=== PATIENT | female | born 1965 | race Caucasian/White ===

== ENCOUNTER 2022-02-07 16:43 | Emergency (ER) | payer OTHER ==
--- NOTE | 2022-02-07 18:07 | RAD REPORT ---
EXAM DESCRIPTION: CT - Head Brain Wo Cont - 02/07/2022 5:50 pm CLINICAL HISTORY: Head injury status post fall COMPARISON: None TECHNIQUE: Computed axial tomography of the head was obtained. IV contrast was not requested. All CT scans are performed using dose optimization technique as appropriate and may include automated exposure control or mA/KV adjustment according to patient size. FINDINGS: An intracranial bleed is not seen . The ventricles are normal in caliber. No extra-axial fluid collection is noted. Mild to moderate cerebral atrophy. Increased density within the right lobe presumably secondary to either calcification or bleed. It pro bably is chronic but should be correlated clinically Fluid within the sinuses/ mastoids is not seen. IMPRESSION: No acute intracranial abnormality is seen. If patient's symptoms persist MRI of the bra in would be recommended.
--- NOTE | 2022-02-07 18:09 | RAD REPORT ---
EXAM DESCRIPTION: RAD - Pelvis - 02/07/2022 5:34 pm CLINICAL HISTORY: Pelvic pain status post injury FINDINGS: No fracture or dislocation is seen. Bones are osteoporotic
--- NOTE | 2022-02-07 18:15 | ER ---
Nurse's Notes [facility] Name: Norma Ruiz Age: 56 yrs Sex: Female : 1965 Arrival Date: 02/07/2022 Time: 16:52 Bed 19 Private MD: Diagnosis: Unspecified injury of head, initial encounter;Contusion of lower back and pelvis Presentation: 02/07 17:17 Chief complaint: EMS states: Report received from EMS, patient received by stretcher ag7 alert and awake, talking. Patient complain that she fell while attempting to sit down and hit the back of her head. Coronavirus screen: Client denies travel out of the [place] in the last 14 days. At this time, the client does not indicate any symptoms associated with coronavirus-19. Ebola Screen: No symptoms or risks identified at this time. Initial Sepsis Screen: Does the patient meet any 2 criteria? No. Patient's initial sepsis screen is negative. Does the patient have a suspected source of infection? No. Patient's initial sepsis screen is negative. Risk Assessment: Do you want to hurt yourself or someone else? Patient reports no desire to harm self or others. Onset of symptoms was February 07, 2022. 17:17 Method Of Arrival: EMS: [facility] 17:17 Acuity: LEWIS 2 ag7 Historical: - Allergies: 17:22 metronizadole; ag7 17:22 Morphine; ag7 17:22 prednisone; ag7 17:22 CEPHALOSPORINS; ag7 17:22 Latex, Natural Rubber; ag7 - Home Meds: 17:23 Melatonin Oral [Active]; duloxetine oral [Active]; pramoxine topical [Active]; Xyzal ag7 oral [Active]; torsemide oral [Active]; Timolol Maleate Opht [Active]; rosuvastatin oral [Active]; Plavix Oral [Active]; Nitroglycerin SL [Active]; insulin lispro subcutaneous [Active]; Metoprolol Tartrate Oral [Active]; Singulair Oral [Active]; Insulin Glargine Sub-Q [Active]; Ibuprofen Oral [Active]; Aspirin Oral [Active]; - PMHx: 17:31 Diabetes mellitus; Major depressive disorder; diabetic retinopathy; macular edema; ag7 vitamin d defiency; hyperlipidemia; acute kidney failure; - Immunization history:: Adult Immunizations up to date, Client reports receiving the 2nd dose of the Covid vaccine, Pneumococcal vaccine is up to date, Flu vaccine is up to date. - Social history:: Smoking status: Patient denies any tobacco usage or history of. - Family history:: not pertinent. - Hospitalizations: : No recent hospitalization is reported. Screenin:43 Abuse screen: Denies threats or abuse. Nutritional screening: No deficits noted. ag7 Tuberculosis screening: No symptoms or risk factors identified. Fall Risk Fall in past 12 months (25 points). Secondary diagnosis (15 points) IV access (20 points). Ambulatory Aid- None/Bed Rest/Nurse Assist (0 pts). Gait- Weak (10 pts.). Mental Status- Oriented to own ability (0 pts). Total Busch Fall Scale indicates High Risk Score (45 or more points). Fall prevention measures have been instituted. Side Rails Up X 2 Placed Close to Nursing Station Frequent Obs/Assessments Occuring Family Present and informed to notify staff if the need to leave the bedside As available patient and family educated on Fall Prevention Program and Strategies. Assessment: 17:34 General: Appears in no apparent distress. well groomed, Behavior is calm, cooperative, ag7 appropriate for age. Pain: Complains of pain in right frontal area Pain does not radiate. Pain currently is 5 out of 10 on a pain scale. Quality of pain is described as aching, Pain began suddenly, Is continuous. 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 Cardiovascular: Heart tones S1 S2 present Capillary refill < 3 seconds Clubbing of nail beds is absent Patient's skin is warm and dry. Respiratory: Airway is patent Trachea midline Respiratory effort is even, unlabored, Respiratory pattern is regular, symmetrical. Injury Description: Head injury sustained to back of head is closed, did not have loss of consciousness. Vital Signs: 17:17 BP 114 / 63 LA Supine (man/reg); Pulse 59 MON; Resp 16 S; Temp 98.6(O); Pulse Ox 100% ag7 on R/A; Weight 105.05 kg (R); Height 65 in. (165.10 cm) (R); Pain 5/10; 17:17 Body Mass Index 38.54 (105.05 kg, 165.10 cm) ag7 [place] Coma Score: 17:24 Eye Response: spontaneous(4). Verbal Response: oriented(5). Motor Response: obeys rn commands(6). Total: 15. 18:13 Eye Response: spontaneous(4). Verbal Response: oriented(5). Motor Response: obeys rn commands(6). Total: 15. ED Course: 16:52 Patient arrived in ED. jd3 16:58 Maame Haji, BRIJESH is Primary Nurse. ag7 17:08 Ivan Alatorre MD is Attending Physician. rn 17:22 Triage completed. ag7 17:34 XRAY Pelvis In Process Unspecified. EDMS 17:34 Arm band placed on. ag7 17:50 CT Head Brain wo Cont In Process Unspecified. EDMS 18:43 No provider procedures requiring assistance completed. ag7 18:45 Patient has correct armband on for positive identification. Bed in low position. Call ag7 light in reach. Side rails up X 1. Adult w/ patient. 18:45 Patient did not have IV access during this emergency room visit. ag7 Administered Medications: No medications were administered Outcome: 18:14 Discharge ordered by . rn 18:44 Discharged to home ambulatory. ag7 18:44 Condition: stable 18:44 Discharge instructions given to patient, family, Instructed on discharge instructions, follow up and referral plans. Demonstrated understanding of instructions, follow-up care. 18:45 Patient left the ED. ag7 Signatures: Dispatcher [employer] EDAZ Ivan Alatorre MD MD rn Davies, Jonathon, RN RN jd3 Maame Haji RN RN ag7
--- NOTE | 2022-02-07 18:15 | EDPHYS ---
Physician Documentation [facility] Name: Norma Ruiz Age: 56 yrs Sex: Female : 1965 Arrival Date: 02/07/2022 Time: 16:52 Bed 19 Private MD: ED Physician Ivan Alatorre HPI: 02/07 17:24 This 56 yrs old Female presents to ER via EMS with complaints of head injury, fall. rn 17:24 The patient or guardian reports injury, pain. The complaints affect the right frontal rn area. Onset: The symptoms/episode began/occurred just prior to arrival. Associated signs and symptoms: Loss of consciousness: This patient did not experience any loss of consciousness. Pertinent positives: headache, Pertinent negatives: neck pain, seizure, shortness of breath, weakness in extremities, generalized weakness. Severity of symptoms: At their worst the symptoms were mild, in the emergency department the symptoms are unchanged. The patient has not experienced similar symptoms in the past. The patient has not recently seen a physician. Pt reports mis-judged her surroundings, was trying to sit on bed, missed, fell onto buttocks/right hip, then rolled and struck right/back of head, states takes aspirin and another anticoagulant. Denies LOC. No vomiting. No focal neuro complaint. Denies neck pain/chest pain/sob/abd pain/leg pain. Reports chronic lumbar back pain and chronic hip pain. . Historical: - Allergies: 17:22 metronizadole; ag7 17:22 Morphine; ag7 17:22 prednisone; ag7 17:22 CEPHALOSPORINS; ag7 17:22 Latex, Natural Rubber; ag7 - Home Meds: 17:23 Melatonin Oral [Active]; duloxetine oral [Active]; pramoxine topical [Active]; Xyzal ag7 oral [Active]; torsemide oral [Active]; Timolol Maleate Opht [Active]; rosuvastatin oral [Active]; Plavix Oral [Active]; Nitroglycerin SL [Active]; insulin lispro subcutaneous [Active]; Metoprolol Tartrate Oral [Active]; Singulair Oral [Active]; Insulin Glargine Sub-Q [Active]; Ibuprofen Oral [Active]; Aspirin Oral [Active]; - PMHx: 17:31 Diabetes mellitus; Major depressive disorder; diabetic retinopathy; macular edema; ag7 vitamin d defiency; hyperlipidemia; acute kidney failure; - Immunization history:: Adult Immunizations up to date, Client reports receiving the 2nd dose of the Covid vaccine, Pneumococcal vaccine is up to date, Flu vaccine is up to date. - Social history:: Smoking status: Patient denies any tobacco usage or history of. - Family history:: not pertinent. - Hospitalizations: : No recent hospitalization is reported. ROS: 17:24 Constitutional: Negative for fever, chills, and weight loss, Eyes: Negative for injury, rn pain, redness, and discharge, Neck: Negative for injury, pain, and swelling, Cardiovascular: Negative for chest pain, palpitations, and edema, Respiratory: Negative for shortness of breath, cough, wheezing, and pleuritic chest pain, Abdomen/GI: Negative for abdominal pain, nausea, vomiting, diarrhea, and constipation, Back: Negative for injury and pain, MS/Extremity: + right hip and lower back pain Skin: Negative for injury, rash, and discoloration, Neuro: Negative for weakness, numbness, tingling, and seizure, + headache Exam: 17:24 Constitutional: This is a well developed, well nourished patient who is awake, alert, rn and in no acute distress. Head/Face: Normocephalic, atraumatic. Eyes: Periorbital areas with no swelling, redness, or edema. Neck: Trachea midline, no masses palpated. Supple, full range of motion without nuchal rigidity, or vertebral point tenderness. No Meningismus. Chest/axilla: Normal chest wall appearance and motion. Nontender with no deformity. No lesions are appreciated. Cardiovascular: Regular rate and rhythm. No pulse deficits. Respiratory: No increased work of breathing, no retractions or nasal flaring. Abdomen/GI: soft, non-tender Back: No spinal tenderness. No costovertebral tenderness. Full range of motion. Skin: Warm, dry with normal turgor. Normal color with no rashes, no lesions, and no evidence of cellulitis. MS/ Extremity: Pulses equal, no cyanosis. Neurovascular intact. Full, normal range of motion. Equal circumference. No focal tenderness at either hip and has full flexion/extension at both hips. Neuro: Awake and alert, GCS 15, oriented to person, place, time. . Motor strength 5/5 in all extremities. Sensory grossly intact. Vital Signs: 17:17 BP 114 / 63 LA Supine (man/reg); Pulse 59 MON; Resp 16 S; Temp 98.6(O); Pulse Ox 100% ag7 on R/A; Weight 105.05 kg (R); Height 65 in. (165.10 cm) (R); Pain 5/10; 17:17 Body Mass Index 38.54 (105.05 kg, 165.10 cm) ag7 [place] Coma Score: 17:24 Eye Response: spontaneous(4). Verbal Response: oriented(5). Motor Response: obeys rn commands(6). Total: 15. 18:13 Eye Response: spontaneous(4). Verbal Response: oriented(5). Motor Response: obeys rn commands(6). Total: 15. MDM: 17:08 Patient medically screened. rn 18:13 Differential diagnosis: Contusion of head, Hematoma on head, Intracranial bleed- rn Concussion cerebral contusion. Data reviewed: vital signs, nurses notes, radiologic studies, CT scan, plain films, and as a result, I will discharge patient. Counseling: I had a detailed discussion with the patient and/or guardian regarding: the historical points, exam findings, and any diagnostic results supporting the discharge/admit diagnosis, lab results, radiology results, the need for outpatient follow up, to return to the emergency department if symptoms worsen or persist or if there are any questions or concerns that arise at home. Special discussion: Based on the patient's history, exam and DX evaluation, there is no indication for emergent intervention or inpatient TX. It is understood by the patient/guardian that if the SXs persist or worsen they need to return immediately for re-evaluation. I discussed with the patient/guardian in detail that at this point there is no indication for admission to the hospital. It is understood, however, that if the symptoms persist or worsen the patient needs to return immediately for re-evaluation. 02/07 17:14 Order name: CT Head Brain wo Cont; Complete Time: 18:12 rn 02/07 17:14 Order name: XRAY Pelvis; Complete Time: 18:12 rn Administered Medications: No medications were administered Disposition Summary: 02/07/22 18:14 Discharge Ordered Location: Home rn Problem: new rn Symptoms: have improved rn Condition: Stable rn Diagnosis - Unspecified injury of head, initial encounter rn - Contusion of lower back and pelvis rn Followup: rn - With: Private Physician - When: As needed - Reason: Recheck today's complaints, Re-evaluation by your physician Discharge Instructions: - Discharge Summary Sheet rn - Contusion rn - Head Injury, Adult rn Forms: - Medication Reconciliation Form rn - Thank You Letter rn - 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
[2022-02-07 21:06] VITALS: BP 114/63; TEMP 98.6; O2SAT 100
== END 2022-02-07 18:45 | disposition home or self-care (01) ==
LOC: ER 16:43
DX: S09.90XA Unspecified injury of head, initial encounter (principal); S30.0XXA Contusion of lower back and pelvis, initial encounter; W06.XXXA Fall from bed, initial encounter; Z88.3 Allergy status to other anti-infective agents; Z88.5 Allergy status to narcotic agent; Z88.8 Allergy status to other drugs, medicaments and biological substances; Z91.040 Latex allergy status; Z91.048 Other nonmedicinal substance allergy status; E11.9 Type 2 diabetes mellitus without complications; Z79.4 Long term (current) use of insulin; N17.9 Acute kidney failure, unspecified; E78.5 Hyperlipidemia, unspecified; Z79.01 Long term (current) use of anticoagulants
CPT/HCPCS: 70450; 72170; 99283

== ENCOUNTER 2022-05-07 14:58 | Emergency (ER) | payer OTHER ==
[2022-05-07] MEDS ORDERED: ACETAMINOPHEN 325 MG TABLET ONE (15:30)
--- NOTE | 2022-05-07 16:06 | RAD REPORT ---
EXAM DESCRIPTION: RAD - Wrist Right 3 View - 05/07/2022 3:52 pm CLINICAL HISTORY: PAIN COMPARISON: No comparisons FINDINGS/IMPRESSION: No acute fracture. No malalignment. Radiocarpal joint space narrowing.
--- NOTE | 2022-05-07 16:06 | RAD REPORT ---
EXAM DESCRIPTION: RAD - Elbow Right 3 View - 05/07/2022 3:52 pm CLINICAL HISTORY: PAIN COMPARISON: No comparisons FINDINGS/IMPRESSION: Mildly distracted fracture of the olecranon. No elbow dislocation. No other fra ctures are identified.
--- NOTE | 2022-05-07 16:27 | ER ---
Nurse's Notes [facility] Name: Norma Ruiz Age: 56 yrs Sex: Female : 1965 Arrival Date: 05/07/2022 Time: 14:59 Bed 19 [facility] MD: Diagnosis: Displaced fracture of olecranon process without intraarticular extension of left ulna Presentation: 05/07 14:59 Chief complaint: EMS states: FALL [facility], PAIN IN R ELBOW AND R bp WRIST. Coronavirus screen: At this time, the client does not indicate any symptoms associated with coronavirus-19. Ebola Screen: No symptoms or risks identified at this time. Initial Sepsis Screen: Does the patient meet any 2 criteria? No. Patient's initial sepsis screen is negative. Does the patient have a suspected source of infection? No. Patient's initial sepsis screen is negative. Risk Assessment: Do you want to hurt yourself or someone else? Patient reports no desire to harm self or others. Onset of symptoms is unknown. 14:59 Method Of Arrival: EMS: [facility] bp 14:59 Acuity: LEWIS 3 bp Triage Assessment: 15:01 General: Appears in no apparent distress. comfortable, obese, Behavior is cooperative, bp appropriate for age, anxious. Pain: Complains of pain in right arm. EENT: No deficits noted. Neuro: No deficits noted. Cardiovascular: No deficits noted. Respiratory: No deficits noted. GI: No deficits noted. : No signs and/or symptoms were reported regarding the genitourinary system. Derm: No deficits noted. Musculoskeletal: No deficits noted. Historical: - Allergies: 15:01 CEPHALOSPORINS; bp 15:01 Latex, Natural Rubber; bp 15:01 metronizadole; bp 15:01 Morphine; bp 15:01 Prednisone; bp - Home Meds: 15:01 Melatonin Oral [Active]; Aspirin Oral [Active]; duloxetine Oral [Active]; Ibuprofen bp Oral [Active]; Insulin Glargine Sub-Q [Active]; insulin lispro subcutaneous [Active]; Metoprolol Tartrate Oral [Active]; Nitroglycerin SL [Active]; Plavix Oral [Active]; pramoxine Topical [Active]; rosuvastatin Oral [Active]; Singulair Oral [Active]; Timolol Maleate Opht [Active]; torsemide Oral [Active]; Xyzal Oral [Active]; - PMHx: 15:01 Acute Kidney Failure; vitamin d defiency; diabetes mellitus; diabetic retinopathy; bp macular edema; Hyperlipidemia; Major Depressive Disorder; - Immunization history:: Adult Immunizations. - Social history:: Smoking status: Patient denies any tobacco usage or history of. Screenin:07 Abuse screen: Denies threats or abuse. Denies injuries from another. Nutritional bp screening: No deficits noted. Tuberculosis screening: No symptoms or risk factors identified. Fall Risk None identified. Assessment: 15:07 General: SEE TRIAGE NOTE. bp 16:05 Reassessment: Patient appears in no apparent distress at this time. Patient and/or jb4 family updated on plan of care and expected duration. Pain level reassessed. Patient is alert, oriented x 3, equal unlabored respirations, skin warm/dry/pink. 17:03 Reassessment: [place] Nurse states that transportation will arrive in about 40 ss minutes. 17:35 Reassessment: Patient appears in no apparent distress at this time. Patient and/or jb4 family updated on plan of care and expected duration. Pain level reassessed. Patient is alert, oriented x 3, equal unlabored respirations, skin warm/dry/pink. Vital Signs: 14:59 BP 116 / 89; Pulse 70; Resp 16; Temp 98; Pulse Ox 100% ; bp 16:05 BP 145 / 81; Pulse 65; Resp 16; Pulse Ox 100% on R/A; jb4 17:35 BP 139 / 71; Pulse 75; Resp 18; Pulse Ox 95% on R/A; jb4 ED Course: 14:59 Patient arrived in ED. bp 15:01 Triage completed. bp 15:01 Arm band placed on. bp 15:03 Brina Freed PA is PHCP. en 15:03 Ines Lujan MD is Attending Physician. en 15:07 Patient has correct armband on for positive identification. Bed in low position. Call bp light in reach. Side rails up X2. 15:09 Ravi Rahman, RN is Primary Nurse. bp 15:54 Wrist Right 3 View XRAY In Process Unspecified. EDMS 15:54 Elbow Right 3 View XRAY In Process Unspecified. EDMS 16:26 Johnny Zhu MD is Referral Physician. en 17:35 No provider procedures requiring assistance completed. Patient did not have IV access jb4 during this emergency room visit. Administered Medications: 15:36 Drug: Tylenol 650 mg Route: PO; jb4 16:49 Follow up: Response: No adverse reaction jb4 16:48 Drug: Ibuprofen 800 mg Route: PO; jb4 17:35 Follow up: Response: No adverse reaction; Marked relief of symptoms jb4 Medication: 15:07 VIS not applicable for this client. bp Outcome: 16:26 Discharge ordered by . en 17:35 Discharged to halfway. jb4 17:35 Condition: stable 17:35 Discharge instructions given to patient, Instructed on discharge instructions, follow up and referral plans. medication usage, Demonstrated understanding of instructions, follow-up care, medications, Prescriptions given X 1. 17:37 Patient left the ED. jb4 Signatures: Dispatcher [employer] EDMS Carlota Zamudio RN RN Andreas Christopher RN RN jb4 Ravi Rahman RN RN bp [place], Elizabeth, PA PA en
--- NOTE | 2022-05-07 16:27 | EDPHYS ---
Physician Documentation [facility] Name: Norma Ruiz Age: 56 yrs Sex: Female : 1965 Arrival Date: 05/07/2022 Time: 14:59 Bed 19 Private MD: ED Physician Ines Lujan HPI: 05/07 15:42 This 56 yrs old Female presents to ER via EMS with complaints of Fall Injury. en 15:42 56 yo F, legally blind, presents to ED with right elbow and wrist pain s/p slip off end en of bed [employer]SEM[employer]. Pt is visually impaired and slid off end of bed hitting elbow directly on floor. No LOC. Arrived via EMS with c/o DROM right elbow with pain. . Historical: - Allergies: 15:01 CEPHALOSPORINS; bp 15:01 Latex, Natural Rubber; bp 15:01 metronizadole; bp 15:01 Morphine; bp 15:01 Prednisone; bp - Home Meds: 15:01 Melatonin Oral [Active]; Aspirin Oral [Active]; duloxetine Oral [Active]; Ibuprofen bp Oral [Active]; Insulin Glargine Sub-Q [Active]; insulin lispro subcutaneous [Active]; Metoprolol Tartrate Oral [Active]; Nitroglycerin SL [Active]; Plavix Oral [Active]; pramoxine Topical [Active]; rosuvastatin Oral [Active]; Singulair Oral [Active]; Timolol Maleate Opht [Active]; torsemide Oral [Active]; Xyzal Oral [Active]; - PMHx: 15:01 Acute Kidney Failure; vitamin d defiency; diabetes mellitus; diabetic retinopathy; bp macular edema; Hyperlipidemia; Major Depressive Disorder; - Immunization history:: Adult Immunizations. - Social history:: Smoking status: Patient denies any tobacco usage or history of. ROS: 15:42 Constitutional: Negative for fever, chills, and weight loss. en 15:42 MS/extremity: Positive for right elbow and wrist pain with DROM right elbow. 15:42 All other systems are negative. Exam: 15:42 Constitutional: This is a well developed, well nourished patient who is awake, alert, en and in no acute distress. 15:42 Constitutional: The patient appears in no acute distress, alert, awake. 15:42 Eyes: visually impaired. 15:42 Back: pain, is absent, ROM is normal, normal spinal alignment noted. 15:42 Musculoskeletal/extremity: DROM right elbow 2/2 pain. No swelling or deformity. No TTP to wrist, but pain with ROM. 2+ radial pulse, normal sensation. 15:42 Neuro: Orientation: appropriate for stated age, to person, place \T\ time. Mentation: appropriate for stated age. 15:42 Psych: Behavior/mood is pleasant, cooperative, Affect is calm. Vital Signs: 14:59 BP 116 / 89; Pulse 70; Resp 16; Temp 98; Pulse Ox 100% ; bp 16:05 BP 145 / 81; Pulse 65; Resp 16; Pulse Ox 100% on R/A; jb4 17:35 BP 139 / 71; Pulse 75; Resp 18; Pulse Ox 95% on R/A; jb4 Procedures: 16:24 Splinting: Splint applied to right antecubital area using Orthoglass splint, Long arm en splint. applied by myself. Examined by me, post splint application: neurovascular intact, brisk capillary refill noted, Patient tolerated well. MDM: 15:04 Patient medically screened. en 15:42 Differential diagnosis: fracture, sprain, strain. Data reviewed: vital signs, nurses en notes, radiologic studies, and as a result, I will will give tylenol for pain and XR elbow and wrist. 16:24 ED course: Pt with minimally displace olecranon fx, placed in long arm splint. Will d/c en home with ortho f/u. 05/07 15:03 Order name: Wrist Right 3 View XRAY; Complete Time: 16:23 en 05/07 15:03 Order name: Elbow Right 3 View XRAY; Complete Time: 16:23 en Administered Medications: 15:36 Drug: Tylenol 650 mg Route: PO; jb4 16:49 Follow up: Response: No adverse reaction jb4 16:48 Drug: Ibuprofen 800 mg Route: PO; jb4 17:35 Follow up: Response: No adverse reaction; Marked relief of symptoms jb4 Disposition Summary: 05/07/22 16:26 Discharge Ordered Location: Home en Problem: new en Symptoms: are unchanged en Condition: Stable en Diagnosis - Displaced fracture of olecranon process without intraarticular extension of left en ulna Followup: en - With: Johnny Zhu MD - When: 2 - 3 days - Reason: Discharge Instructions: - Discharge Summary Sheet en - Elbow Fracture, Pediatric en Forms: - Medication Reconciliation Form en - Thank You Letter en - Antibiotic Education en - Prescription Opioid Use en Prescriptions: - Ibuprofen 800 mg Oral Tablet - take 1 tablet by ORAL route every 12 hours As needed take with food; 20 tablet; en Refills: 0, Product Selection Permitted Signatures: Dispatcher [employer] EDAndreas Mendes RN RN jb4 Ravi Rahman RN RN bp Brina Freed PA PA en
[2022-05-07] MEDS ORDERED: IBUPROFEN 400 MG TAB ONE (16:53)
[2022-05-07 17:43] VITALS: TEMP 98
[2022-05-07 17:47] VITALS: BP 139/71; O2SAT 95
== END 2022-05-07 17:37 | disposition home or self-care (01) ==
LOC: ER 14:58
PROC: 2W38X1Z Immobilization of Right Upper Extremity using Splint (ICD-10-PCS; principal; 2022-05-07)
DX: S52.021A Displaced fracture of olecranon process without intraarticular extension of right ulna, initial encounter for closed fracture (principal); E11.9 Type 2 diabetes mellitus without complications; N17.9 Acute kidney failure, unspecified

== ENCOUNTER 2022-07-26 09:40 | Emergency (ER) | payer OTHER ==
--- OUTSIDE RECORDS SUMMARY | 2022-07-26 09:43 | XMS REPORT | Continuity of Care Document ---
:1965 Author Organization [facility] t Address [address] [place] [address] Care Team Providers Name Role Phone PCP, PATIENT DOES NOT HAVE A Primary Care Physician Unavaila AYSHA Shay Attending Clinician Unavailable Aysha Kramer Attending Clinician Payers Payer Name Policy Type Policy Number Effective Date Expiration Date Snow murcia MEDICARE PART A [id number] 2001 \T\ B 00:00:00 MEDICAID [facility] [id number] 2022 00:00:00 Problems Condition Condition Condition Status Onset Resolution Last Treating Co mments Source Name Details Category Date Date Treatment Clinician Date No known No known Disease Unive rs active active ity of problems problems [facility] Allergies, Adverse Reactions, Alerts Allergy Allergy Status Severity Reaction(s) Onset Inactive Treating Comm ents Source Name Type Date Date Clinician LATEX DRUG Active Rash Univers INGREDI 7-28 ity of 00:00: [place] 00 Medical Branch METRONID DRUG Active Hives Univers AZOLE INGREDI 7-28 ity of 00:00: [place] 00 Medical Branch MORPHINE DRUG Active Anxiety 2021-0 Univers INGREDI 7-28 ity of 00:00: [place] 00 Medical Branch PREDNISO DRUG Active Palpitations 2021-0 Un helen NE INGREDI 7-28 ity of 00:00: [place] 00 Medical Branch Cephalos Propensi Active Anxiety 2021-0 Unive rs porins ty to 7-28 ity of adverse 00:00: [place] reaction 00 Medical s Branch Latex Propensi Active Rash 2021-0 Univers ty to 7-28 ity of adverse 00:00: [place] reaction 00 Medical s Branch Metronid Propensi Active Hives 2021-0 Univer s azole ty to 728 ity of adverse 00:00: [place] reaction Medical s Branch Morphine Propensi Active Anxiety Unive rs ty to 7-28 ity of adverse 00:00: [place] reaction Medical s Branch Predniso Propensi Active Palpitations Univers ne ty to 7-28 ity of adverse 00:00: [place] reaction Medical s Branch CEPHALOS Drug Active Anxiety Univers PORINS Class 7-28 ity of 00:00: Medical Branch Social History Social Habit Start Date Stop Date Quantity Comments Source Exposure to 2022-06-05 2022-06-15 Not sure [facility] SARS-CoV-2 (event) 00:00:00 08:13:00 Medica l Branch Sex [facility] [birth year] [facility] [place] 00:00:00 00:00:00 Medical Branch Smoking Status Start Date Stop Date Source Tobacco smoking consumption [facility] Medical unknown Branch Medications Ordered Filled Start Stop Current Ordering Indication Dosage Frequency Signature Comments Components Source Medication Medication Date Date Medication? Clinician (SIG) Name Name HALEY Yes Univers KWIKPEN 6-13 ity of U-100 00:00: [place] INSULIN 100 00 Medical unit/mL (3 Branch mL) injection BASAGLAR Yes Univers KWIKPEN 6-13 ity of U-100 00:00: [place] INSULIN 100 00 Medical unit/mL (3 Branch mL) injection clopidogreL Yes Univer s 75 mg 6-09 ity of tablet 00:00: [place] Medical Branch levocetiriz Yes Univer s ine 5 mg 6-09 ity of tablet 00:00: [place] Medical [facility] clopidogreL 0 Yes Univer s 75 mg 6-09 ity of tablet 00:00: [place] Medical Branch levocetiriz 0 Yes Univer s ine 5 mg 6-09 ity of tablet 00:00: Medical Branch SIMBRINZA Yes Univers 1-0.2 % 5-27 ity of ophthalmic 00:00: [place] drops Medical Branch SIMBRINZA 0 Yes Univers 1-0.2 % 5-27 ity of ophthalmic 00:00: [place] drops Medical Branch NOVOLOG 0 Yes Univers U-100 5-26 ity of INSULIN 00:00: [place] ASPART 100 00 Medical unit/mL Branch solution NOVOLOG Yes Univers U-100 5-26 ity of INSULIN 00:00: [place] ASPART 100 00 Medical unit/mL Branch solution rosuvastati Yes Univer s n 20 mg 5-21 ity of tablet 00:00: [place] [facility] rosuvastati Yes Univer s n 20 mg 5-21 ity of tablet 00:00: [address] Vital Signs Vital Name Observation Time Observation Value Comments Source Systolic blood 2022-06-15 13:23:00 110 mm[Hg] Justaer sity [facility] Diastolic blood 2022-06-15 13:23:00 70 mm[Hg] [facility] Districte rsaudie [facility] Body height 2022-06-15 13:23:00 162.6 cm [facility] Body weight 2022-06-15 13:23:00 108.863 kg [facility] BMI 2022-06-15 13:23:00 41.20 kg/m2 [facility] Procedures This patient has no known procedures. Encounters Start End Encounter Admission Attending Care Care Encounter Source Date/Time Date/Time Type Type Clinicians Facility Department ID 2022-06-15 2022-06-15 Outpatient R ASHLEY [facility] [id number] Univers 08:00:00 08:52:00 AYSHA [facility] 2022-06-15 2022-06-15 Office Ashley [facility] [id number] Univers 08:00:00 08:30:00 Visit [facility] [id number] it y of ACE [id number] Zi as MING?BLEA [id number] [place] [address] MEDICAL OFFICE BUILDING Results This patient has no known results.
[2022-07-26 10:35] LABS: Absolute Lymphocytes (CBC) 0.8 K/uL (0.7-4.9); Lymphocytes % 9.7 % (15.3-44.8); MCV 85.1 fL (80-100); MPV 8.5 fL (7.6-11.3); RBC Red Blood Cell Count 4.58 M/uL (3.86-4.86)
--- NOTE | 2022-07-26 10:47 | RAD REPORT ---
EXAM DESCRIPTION: RAD - Hip Left 2 View - 07/26/2022 10:09 am CLINICAL HISTORY: PAIN COMPARISON: No comparisons FINDINGS/IMPRESSION: Comminuted left intertrochanteric hip fracture. No dislocation. Partially image d intramedullary devin in the mid femoral diaphysis.
[2022-07-26 10:49] LABS: Potassium 4.8 mmol/L (3.5-5.1)
[2022-07-26] MEDS ORDERED: KETAMINE HCL 500 MG/5 ML VIAL ONE (11:03)
--- NOTE | 2022-07-26 12:09 | ER ---
Nurse's Notes [facility] Name: Norma Ruiz Age: 56 yrs Sex: Female : 1965 Arrival Date: 07/26/2022 Time: 09:45 Bed 19 Private MD: Diagnosis: Intertrochanteric fracture of femur;Fall on same level, unspecified Presentation: 07/26 09:47 Chief complaint: EMS states: EMS called to [facility] for a fall from standing. Pt reporting jh6 pain to l hip and femur that is worse with movement. Coronavirus screen: Vaccine status: Patient reports receiving the 2nd dose of the covid vaccine. Ebola Screen: Patient negative for fever greater than or equal to 101.5 degrees Fahrenheit, and additional compatible Ebola Virus Disease symptoms Patient denies exposure to infectious person. Patient denies travel to an Ebola-affected area in the 21 days before illness onset. Initial Sepsis Screen: Does the patient meet any 2 criteria? No. Patient's initial sepsis screen is negative. Does the patient have a suspected source of infection? No. Patient's initial sepsis screen is negative. Risk Assessment: Do you want to hurt yourself or someone else? Patient reports no desire to harm self or others. Onset of symptoms was July 26, 2022. 09:47 Method Of Arrival: EMS: [facility] 09:47 Acuity: LEWIS 3 jh6 Triage Assessment: 09:51 General: Appears in no apparent distress. uncomfortable, Behavior is calm, cooperative. jh6 Pain: Complains of pain in left femoral area, left inguinal area and left hip Pain radiates to left upper thigh and left quadriceps Pain currently is 6 out of 10 on a pain scale. Quality of pain is described as aching, Pain began suddenly, Is continuous, Aggravated by exercise, increased activity, repositioning. Historical: - Allergies: 09:49 CEPHALOSPORINS; jh6 09:49 Latex, Natural Rubber; jh6 09:49 metronizadole; jh6 09:49 Morphine; jh6 09:49 Prednisone; jh6 - PMHx: 09:49 Acute Kidney Failure; vitamin d defiency; Major Depressive Disorder; Hyperlipidemia; jh6 diabetic retinopathy; macular edema; diabetes mellitus; - Immunization history:: Adult Immunizations up to date. - Social history:: Smoking status: Patient denies any tobacco usage or history of. Screenin:52 Abuse screen: Denies threats or abuse. Denies injuries from another. Nutritional jh6 screening: No deficits noted. Tuberculosis screening: No symptoms or risk factors identified. Fall Risk Fall in past 12 months (25 points). Secondary diagnosis (15 points) impaired mobility. Assessment: 09:49 General: Appears uncomfortable, Behavior is cooperative. jh6 09:49 Pain: Complains of pain in left femoral area, left inguinal area, left iliac crest and jh6 left hip. 11:00 Reassessment: Patient and/or family updated on plan of care and expected duration. Pain jh6 level reassessed. Patient is alert, oriented x 3, equal unlabored respirations, skin warm/dry/pink. pt having pain to l hip and upper femur area that is worse with manipulation. MD made aware and meds ordered. 12:00 Reassessment: Patient and/or family updated on plan of care and expected duration. Pain jh6 level reassessed. pts clothing removed and placed in gown pur-wick used for voiding. pt does report that pain is decreased after meds. 14:00 Reassessment: Patient and/or family updated on plan of care and expected duration. Pain jh6 level reassessed. Patient is alert, oriented x 3, equal unlabored respirations, skin warm/dry/pink. 16:29 Reassessment: Patient and/or family updated on plan of care and expected duration. Pain jh6 level reassessed. Patient is alert, oriented x 3, equal unlabored respirations, skin warm/dry/pink. waiting for ems to transfer to [facility]. Vital Signs: 09:47 BP 120 / 82; Pulse 59; Resp 17; Temp 98.2; Pulse Ox 98% ; Weight 105.23 kg; Height 5 6 ft. 4 in. (162.56 cm); Pain 6/10; 11:00 BP 142 / 71; Pulse 62; Resp 18; Pulse Ox 98% ; Pain 6/10; jh6 11:00 BP 129 / 58; Pulse 68; Resp 17; Pulse Ox 98% ; Pain 4/10; jh6 09:47 Body Mass Index 39.82 (105.23 kg, 162.56 cm) 6 ED Course: 09:45 Patient arrived in ED. em1 09:46 Laurent Hubbard DO is Attending Physician. ms3 09:47 Yue Lopez, RN is Primary Nurse. 6 09:49 Triage completed. jh6 09:51 Arm band placed on left wrist. jh6 10:11 Hip Left 2 View XRAY In Process Unspecified. EDMS 10:25 Inserted saline lock: 24 gauge in left wrist, using aseptic technique. Blood collected. 6 10:26 Call light in reach. Side rails up X2. jh6 14:13 Head C Spine Mpr Wo Con In Process Unspecified. EDMS 16:28 No provider procedures requiring assistance completed. jh6 Administered Medications: 11:01 Drug: Ketamine 10 mg Route: IVP; Site: left wrist; jh6 11:46 Follow up: Response: Pain is decreased jh6 12:58 Drug: Ketamine 10 mg Route: IVP; Site: right wrist; jh6 16:29 Follow up: Response: Pain is decreased jh6 17:19 Drug: Midazolam 1 mg Route: IVP; Site: left wrist; 6 Medication: 10:26 VIS not applicable for this client. 6 Outcome: 12:08 ER care complete, transfer ordered by . ms3 16:27 Transferred by ground EMS to [facility]. jh6 16:27 Condition: stable 16:27 Discharge instructions given to Instructed on the need for transfer. 17:19 Patient left the ED. 6 Signatures: Dispatcher [employer] Christiano Alicia em1 Laurent Hubbard DO DO ms3 Yue Lopez, RN RN 6
--- NOTE | 2022-07-26 12:09 | EDPHYS ---
Physician Documentation [facility] Name: Norma Ruiz Age: 56 yrs Sex: Female : 1965 Arrival Date: 07/26/2022 Time: 09:45 Bed 19 Private MD: ED Physician Laurent Hubbard HPI: 07/26 09:49 This 56 yrs old Female presents to ER via EMS with complaints of fall with Left hip ms3 pain. 09:49 56-year-old female presents from [facility] via [facility] after tripping ms3 and falling while walking. Patient states she is having left hip pain that she rates an 8/10. Per EMS nursing facility states patient is not on blood thinners, but per patient she is on blood thinners. The patient's medication list shows she is on aspirin daily. Patient states she is having left hip pain she rates a 7/10 described as throbbing. Patient denies nausea, vomiting. Patient denies alleviating factors. Patient states pain is worse with movement.. Historical: - Allergies: 09:49 CEPHALOSPORINS; 6 09:49 Latex, Natural Rubber; jh6 09:49 metronizadole; jh6 09:49 Morphine; jh6 09:49 Prednisone; 6 - PMHx: 09:49 Acute Kidney Failure; vitamin d defiency; Major Depressive Disorder; Hyperlipidemia; 6 diabetic retinopathy; macular edema; diabetes mellitus; - Immunization history:: Adult Immunizations up to date. - Social history:: Smoking status: Patient denies any tobacco usage or history of. ROS: 09:49 Constitutional: Negative for fever, and chills. Neck: Negative for injury, pain, and ms3 swelling, Cardiovascular: Negative for chest pain, and palpitations. Respiratory: Negative for shortness of breath, cough, wheezing, and pleuritic chest pain, Abdomen/GI: Negative for abdominal pain, nausea, vomiting, diarrhea, and constipation, MS/Extremity: Negative for injury and deformity, Skin: Negative for injury, rash, and discoloration. 09:49 MS/extremity: Positive for pain, of the left hip. 09:49 All other systems are negative. ms3 Exam: 09:49 Constitutional: This is a well developed, well nourished patient who is awake, alert, ms3 and in no acute distress. Head/Face: Normocephalic, atraumatic. Neck: Trachea midline, no cervical lymphadenopathy. Supple, full range of motion without nuchal rigidity, or vertebral point tenderness. No Meningismus. Chest/axilla: Normal chest wall appearance and motion. Nontender with no deformity. Cardiovascular: Regular rate and rhythm with a normal S1 and S2. No gallops, murmurs, or rubs. Normal PMI, no JVD. No pulse deficits. Respiratory: Lungs have equal breath sounds bilaterally, clear to auscultation and percussion. No rales, rhonchi or wheezes noted. No increased work of breathing, no retractions or nasal flaring. Abdomen/GI: Soft, non-tender, with normal bowel sounds. No distension or tympany. No guarding or rebound. No evidence of tenderness throughout. Skin: Warm, dry with normal turgor. Normal color with no rashes, no lesions, and no evidence of cellulitis. Psych: Awake, alert, with orientation to person, place and time. Behavior, mood, and affect are within normal limits. 09:49 Musculoskeletal/extremity: ROM: limited passive range of motion due to pain, in the Left hip, Sensation intact. Compartment Syndrome exam of affected extremity: is normal. Vital Signs: 09:47 BP 120 / 82; Pulse 59; Resp 17; Temp 98.2; Pulse Ox 98% ; Weight 105.23 kg; Height 5 jh6 ft. 4 in. (162.56 cm); Pain 6/10; 11:00 BP 142 / 71; Pulse 62; Resp 18; Pulse Ox 98% ; Pain 6/10; jh6 11:00 BP 129 / 58; Pulse 68; Resp 17; Pulse Ox 98% ; Pain 4/10; jh6 09:47 Body Mass Index 39.82 (105.23 kg, 162.56 cm) 6 MDM: 09:46 Patient medically screened. ms3 09:49 Differential diagnosis: contusion, fracture, sprain, strain. ms3 12:07 Counseling: I had a detailed discussion with the patient and/or guardian regarding: the ms3 historical points, exam findings, and any diagnostic results supporting the discharge/admit diagnosis, lab results, radiology results, the need to transfer to another facility. ED course: Discussed case with Dr Mccann. Patient will require IMN nail removal and equipment is not available at [facility] for procedure. Patient will need to be transferred.. 12:08 Data reviewed: vital signs, nurses notes, lab test result(s), radiologic studies, and ms3 as a result, I will Transfer. 13:33 ED course: Discussed case with Dr Lane at [facility] and he will consult on patient.. ms3 07/26 09:47 Order name: Basic Metabolic Panel; Complete Time: 11:26 ms3 07/26 09:47 Order name: CBC with Diff; Complete Time: 11:26 ms3 07/26 09:47 Order name: Type And Screen; Complete Time: 11:26 ms3 07/26 09:47 Order name: CT Head C Spine ms3 07/26 09:47 Order name: Hip Left 2 View XRAY; Complete Time: 11:26 ms3 07/26 13:21 Order name: SARS RAPID; Complete Time: 14:36 bd 07/26 09:47 Order name: Labs collected and sent; Complete Time: 10:25 ms3 07/26 14:09 Order name: Head C Spine Mpr Wo Con; Complete Time: 14:36 EDMS Administered Medications: 11:01 Drug: Ketamine 10 mg Route: IVP; Site: left wrist; 6 11:46 Follow up: Response: Pain is decreased 6 12:58 Drug: Ketamine 10 mg Route: IVP; Site: right wrist; 6 16:29 Follow up: Response: Pain is decreased 6 17:19 Drug: Midazolam 1 mg Route: IVP; Site: left wrist; 6 Disposition Summary: 07/26/22 12:08 Transfer Ordered Reason: Higher level of care ms3 Condition: Stable ms3 Problem: new ms3 Symptoms: are unchanged ms3 Transfer Location: [facility](07/26/22 14:37) ms3 Accepting Physician: Dr Edwards(07/26/22 17:19) 6 Diagnosis - Intertrochanteric fracture of femur ms3 - Fall on same level, unspecified ms3 Forms: - Medication Reconciliation Form ms3 - SBAR form ms3 Signatures: Dispatcher [employer] EDMS Laurent Hubbard DO DO ms3 Yue Lopez RN RN jh6 Corrections: (The following items were deleted from the chart) 14:37 12:08 Dr ms3 ms3 14:37 12:08 [facility] ms3 ms3 17:19 14:37 Dr Edwards ms3 jh6
[2022-07-26 14:05] LABS: SARS-CoV-2 Antigen Rapid Res Negative (Negative)
--- NOTE | 2022-07-26 14:29 | RAD REPORT ---
EXAM DESCRIPTION: CT - CTHCSPWOC - 07/26/2022 2:12 pm CLINICAL HISTORY: Trauma, head and neck injury. fall COMPARISON: Head Brain Wo Cont dated 02/07/2022 TECHNIQUE: Axial 5 mm thick images of the head were obtained. Axial 2 mm thick images of the cervical spine were obtained with sagittal and coronal reconstruction images generated and reviewed. All CT scans are performed using dose optimization technique as appropriate and may include automated exposure control or mA/KV adjustment according to patient size. FINDINGS: CT HEAD WITHOUT CONTRAST: No acute hemorrhage, hydrocephalus or extra-axial collection is identified.Moderate generalized brain atrophy is present with moderate periventricular and deep white matter chronic microvascular ischemi c changes.No areas of brain edema or midline shift. Left vertebral atherosclerosis. Chronic hyperdens ity right globe. The paranasal sinuses and mastoids are clear.The calvarium is intact. CT CERVICAL SPINE WITHOUT CONTRAST: No fracture or subluxation.No prevertebral soft tissues swelling is identified. IMPRESSION: No acute intracranial or cervical spine findings.
[2022-07-26] MEDS ORDERED: MIDAZOLAM HCL 2 MG/2 ML INJ ONE (17:22)
[2022-07-26 17:51] VITALS: TEMP 98.2; O2SAT 98
[2022-07-26 17:54] VITALS: BP 129/58
== END 2022-07-26 17:19 | disposition short-term general hospital (02) ==
LOC: ER 09:40
DX: S72.142A Displaced intertrochanteric fracture of left femur, initial encounter for closed fracture (principal); W18.30XA Fall on same level, unspecified, initial encounter; Z20.822 Contact with and (suspected) exposure to COVID-19; N17.9 Acute kidney failure, unspecified; Z88.3 Allergy status to other anti-infective agents; Z88.5 Allergy status to narcotic agent; Z88.8 Allergy status to other drugs, medicaments and biological substances; Z91.040 Latex allergy status; Z91.048 Other nonmedicinal substance allergy status
CPT/HCPCS: 85025; 80048; 36415; 86900; 86850; 86901; 70450; 72125; 73502; 99285; 87811; J2250

== ENCOUNTER → 2023-11-09 | Emergency (ER) | payer OTHER ==
--- NOTE | 2023-11-09 22:18 | RAD REPORT ---
EXAM DESCRIPTION: Shoulder Right 2 View - 11/09/2023 9:56 pm CLINICAL HISTORY: fall COMPARISON: No comparisons TECHNIQUE: Internal and external rotation views of the right shoulder were obtained. FINDINGS: There is no fracture or dislocation. AC joint mild degenerative changes. Glenohumeral join t appears well aligned. No acute or suspicious findings. IMPRESSION: No acute osseus abnormality. Mild AC joint degenerative changes.
--- NOTE | 2023-11-09 22:22 | RAD REPORT ---
EXAM DESCRIPTION: RAD - Elbow Right 2 View - 11/09/2023 9:56 pm CLINICAL HISTORY: fall COMPARISON: Elbow Right 3 View dated 05/07/2022 TECHNIQUE: Right elbow, 3 views. FINDINGS: No acute fracture is identified. Corticated chronic fracture at the base of the olecranon in unchanged alignment. No elevated posterior fat pad to suggest an effusion. There is no dislocation or periosteal reaction noted. No foreign body or other soft tissue abnormalit y. IMPRESSION: No acute osseous abnormality. 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
--- NOTE | 2023-11-09 22:23 | RAD REPORT ---
EXAM DESCRIPTION: RAD - Hip Right 2 View - 11/09/2023 9:56 pm CLINICAL HISTORY: fall COMPARISON: No comparisons TECHNIQUE: Right hip, AP and frog-leg views. FINDINGS: There is no fracture or dislocation. Moderate femoroacetabular joint degenerative changes. No acute or destructive bony process seen. IMPRESSION: No acute findings of the right hip. Moderate degenerative changes.
--- NOTE | 2023-11-09 22:40 | RAD REPORT ---
EXAM DESCRIPTION: CT - Head Brain Wo Cont - 11/09/2023 10:12 pm CLINICAL HISTORY: TRAUMA COMPARISON: Head Brain Wo Cont dated 02/07/2022 TECHNIQUE: Noncontrast head CT images were obtained without IV contrast. Multiplanar reformats were generated and reviewed. All CT scans are performed using dose optimization technique as appropriate and may include automated exposure control or mA/KV adjustment according to patient size. FINDINGS: No intracranial hemorrhage, mass, or edema. Midline structures are unremarkable. Stable ventricular caliber with moderate prominence of the ventricles. Relative effacement of the sul ci near the vertex compared to other sulci including the sylvian fissures. This is also stable. Chew-white matter differentiation is preserved, without evidence of acute infarct. No abnormal extra- axial fluid collections. Mastoid air cells and visualized portions of the paranasal sinuses are clear. Right globe prosthesis in place. No acute bony findings. IMPRESSION: No evidence of an acute intracranial process. Stable ventricular prominence, with crowding of the sulci near the vertex. This may relate to central ly predominant volume loss versus normal pressure hydrocephalus. Please correlate clinically.
--- NOTE | 2023-11-09 22:53 | EDPHYS ---
Physician Documentation [facility] Name: Norma Ruiz Age: 58 yrs Sex: Female : 1965 Arrival Date: 11/09/2023 Time: 20:57 Bed 19 Private MD: ED Physician Darron Claros HPI: 11/09 21:43 This 58 yrs old Female presents to ER via EMS with complaints of Right elbow, shoulder, sp3 hip pain from fall. 21:43 58-year-old female with history of diabetes, renal disease from skilled nursing presents sp3 via EMS for mechanical ground-level fall while ambulating to the toilet. Patient landed on her right side and complains of right elbow pain, right shoulder pain and mild pain to the right hip and patient did hit her head but denies loss of consciousness, headache or any significant injury to the head. She denies neck pain. Patient is on Plavix but no anticoagulants. She denies chest pain, shortness of breath, abdominal pain, bleeding, syncope, near syncope, prodromal event prior to fall, or any other signs or symptoms on ROS at this time.. Historical: - Allergies: 21:45 CEPHALOSPORINS; pf1 21:45 Latex; pf1 21:45 metronizadole; pf1 21:45 Morphine; pf1 21:45 Prednisone; pf1 21:45 Novocain; pf1 21:45 Aleve; pf1 - PMHx: 21:45 Acute Kidney Failure; diabetes mellitus; diabetic retinopathy; macular edema; pf1 Hyperlipidemia; Major Depressive Disorder; vitamin d defiency; - Immunization history:: Adult Immunizations up to date, 3 doses of Moderna Last tetanus immunization: > 10 years ago Flu vaccine is up to date. - Social history:: Smoking status: Patient denies any tobacco usage or history of. Patient/guardian denies using alcohol, street drugs. ROS: 21:49 Constitutional: Negative for fever, chills, and weight loss, Eyes: Negative for injury, sp3 pain, redness, and discharge, ENT: Negative for injury, pain, and discharge, Neck: Negative for injury, pain, and swelling, Cardiovascular: Negative for chest pain, palpitations, and edema, Respiratory: Negative for shortness of breath, cough, wheezing, and pleuritic chest pain, Abdomen/GI: Negative for abdominal pain, nausea, vomiting, diarrhea, and constipation, Back: Negative for injury and pain, Skin: Negative for injury, rash, and discoloration, Neuro: Negative for headache, weakness, numbness, tingling, and seizure, Psych: Negative for depression, anxiety, suicide ideation, homicidal ideation, and hallucinations, Allergy/Immunology: Negative for hives, rash, and allergies, Endocrine: Negative for neck swelling, polydipsia, polyuria, polyphagia, and marked weight changes, Hematologic/Lymphatic: Negative for swollen nodes, abnormal bleeding, and unusual bruising, Exam: 21:49 Constitutional: This is a well developed, well nourished patient who is awake, alert, sp3 and in no acute distress. Head/Face: Normocephalic, atraumatic. Eyes: Pupils equal round and reactive to light, extra-ocular motions intact. Lids and lashes normal. Conjunctiva and sclera are non-icteric and not injected. Cornea within normal limits. Periorbital areas with no swelling, redness, or edema. ENT: Nares patent. No nasal discharge, no septal abnormalities noted. External auditory canals are clear. Oropharynx with no redness, swelling, or masses, exudates, or evidence of obstruction, uvula midline. Mucous membranes moist. Neck: Trachea midline, no thyromegaly or masses palpated, and no cervical lymphadenopathy. Supple, full range of motion without nuchal rigidity, or vertebral point tenderness. No Meningismus. Chest/axilla: Normal chest wall appearance and motion. Nontender with no deformity. No lesions are appreciated. Cardiovascular: Regular rate and rhythm with a normal S1 and S2. No gallops, murmurs, or rubs. Normal PMI, no JVD. No pulse deficits. Respiratory: Lungs have equal breath sounds bilaterally, clear to auscultation and percussion. No rales, rhonchi or wheezes noted. No increased work of breathing, no retractions or nasal flaring. Abdomen/GI: Soft, non-tender, with normal bowel sounds. No distension or tympany. No guarding or rebound. No evidence of tenderness throughout. Skin: Warm, dry with normal turgor. Normal color with no rashes, no lesions, and no evidence of cellulitis. Neuro: Awake and alert, GCS 15, oriented to person, place, time, and situation. Cranial nerves II-XII grossly intact. Motor strength 5/5 in all extremities. Sensory grossly intact. Cerebellar exam normal. Normal gait. Psych: Awake, alert, with orientation to person, place and time. Behavior, mood, and affect are within normal limits. 21:49 Musculoskeletal/extremity: Pain to the lateral epicondyle of the right elbow and diffuse pain to the right shoulder. Patient later states that her hip is mildly tender as well although limited exam of the hip is normal. Neurological exam is normal.. Vital Signs: 21:09 BP 127 / 49; Pulse 88; Resp 20; Temp 98.9; Pulse Ox 98% on R/A; Weight 105.23 kg; pf1 Height 5 ft. 4 in. ; Pain 6/10; 21:30 BP 134 / 56; Pulse 85; Resp 16; Pulse Ox 100% on R/A; pf1 22:30 BP 127 / 60; Pulse 87; Resp 16; Pulse Ox 98% on R/A; pf1 23:30 BP 131 / 57; Pulse 87; Resp 16; Pulse Ox 97% on R/A; Pain 3/10; pf1 11/10 00:30 BP 131 / 55; Pulse 85; Resp 16; Pulse Ox 98% on R/A; Pain 3/10; pf1 01:00 BP 121 / 54; Pulse 82; Resp 16; Pulse Ox 99% on R/A; Pain 3/10; pf1 11/09 21:09 Body Mass Index 39.82 (105.23 kg, 162.56 cm) pf1 11/09 21:09 Pain Scale: Adult pf1 23:30 Pain Scale: Adult pf1 11/10 00:30 Pain Scale: Adult pf1 01:00 Pain Scale: Adult pf1 MDM: 11/09 21:15 Patient medically screened. [facility] 21:50 Data reviewed: vital signs, nurses notes, radiologic studies. ED course: 58-year-old sp3 female with mechanical ground-level fall. Will x-ray affected regions including right shoulder, right elbow, right hip and also get a CT scan of the head. If workup is negative, we will safely discharge patient back home to her facility.. 22:52 ED course: All imaging is negative. We will safely discharge patient back to nursing [facility] facility.. 11/09 21:23 Order name: Elbow Right 2 View XRAY; Complete Time: 22:44 sp3 11/09 21:23 Order name: Shoulder Right (2 View) XRAY; Complete Time: 22:44 sp3 11/09 21:37 Order name: CT Head Brain wo Cont; Complete Time: 22:44 sp3 11/09 21:37 Order name: Hip Right 2 View XRAY; Complete Time: 22:44 sp3 11/09 21:23 Order name: Vital Signs; Complete Time: 21:51 sp3 Administered Medications: No medications were administered Disposition Summary: 11/09/23 22:52 Discharge Ordered Notes: Location: Home sp3 Condition: Stable sp3 Diagnosis - Mechanical fall, right elbow contusion, right shoulder contusion sp3 Followup: sp3 - With: Private Physician - When: Upon discharge from the Emergency Department - Reason: Continuance of care Discharge Instructions: - Discharge Summary Sheet sp3 - Fall Prevention in the Home, Adult sp3 Forms: - Medication Reconciliation Form sp3 - Thank You Letter sp3 - Antibiotic Education sp3 - Prescription Opioid Use sp3 - Patient Portal Instructions sp3 - Leadership Thank You Letter sp3 Signatures: Dispatcher [employer] Darron Dunlap MD MD sp3 Ruth Katz RN RN pf1
--- NOTE | 2023-11-09 22:53 | ER ---
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 Patient stated she slipped while trying to sit on the toilet and fell, landing onto her right side. Patient denies any LOC. Patient is currently taking Plavix. 21:09 Coronavirus screen: Client denies travel out of the [place] in the last 14 days. At this pf1 time, the client does not indicate any symptoms associated with coronavirus-19. Ebola Screen: Patient negative for fever greater than or equal to 101.5 degrees Fahrenheit, and additional compatible Ebola Virus Disease symptoms. Initial Sepsis Screen: Does the patient meet any 2 criteria? No. Patient's initial sepsis screen is negative. Does the patient have a suspected source of infection? No. Patient's initial sepsis screen is negative. Risk Assessment: Do you want to hurt yourself or someone else? Patient reports no desire to harm self or others. 21:09 Method Of Arrival: EMS: [facility] pf1 21:09 Acuity: LEWIS 3 pf1 Historical: - Allergies: 21:45 CEPHALOSPORINS; pf1 21:45 Latex; pf1 21:45 metronizadole; pf1 21:45 Morphine; pf1 21:45 Prednisone; pf1 21:45 Novocain; pf1 21:45 Aleve; pf1 - PMHx: 21:45 Acute Kidney Failure; diabetes mellitus; diabetic retinopathy; macular edema; pf1 Hyperlipidemia; Major Depressive Disorder; vitamin d defiency; - Immunization history:: Adult Immunizations up to date, 3 doses of Moderna Last tetanus immunization: > 10 years ago Flu vaccine is up to date. - Social history:: Smoking status: Patient denies any tobacco usage or history of. Patient/guardian denies using alcohol, street drugs. Screenin:50 [facility] ED Fall Risk Assessment (Adult) History of falling in the last 3 months, pf1 including since admission Yes- single mechanical fall (1 pt) Confusion or Disorientation No (0 pts) Intoxicated or Sedated No (0 pts) Impaired Gait Yes (1 pt) Mobility Assist Device Used Yes (1 pt) Altered Elimination Yes (1 pt) Score/Fall Risk Level 3 or more points = High Risk Oriented to surroundings, Maintained a safe environment, Educated pt \T\ family on fall prevention, incl call for assistance when getting out of bed, Assessed \T\ reinforced patient's understanding of fall precautions, Provided non-skid footwear, Hourly rounding (assess needs \T\ fall precautionary measures) done, Used ambulatory aids as needed (educated on \T\ assisted with), Used gait belt as appropriate Implemented a Fall Risk Plan of Care, Remained w/in arm's length of patient and in sight while toileting, Offered frequent toileting (1:1 observation), Remained with patient while ambulating, Utilized family, sitter, or virtual buttermilk drier operator as indicated. Abuse screen: Denies threats or abuse. Nutritional screening: No deficits noted. Tuberculosis screening: No symptoms or risk factors identified. Assessment: 21:10 General: Appears in no apparent distress. well developed, Behavior is calm, pf1 cooperative, appropriate for age, quiet. 21:10 Pain: Complains of pain in right elbow, right side head,right shoulder,right back and pf1 right hip Pain currently is 6 out of 10 on a pain scale. Neuro: No deficits noted. Level of Consciousness is awake, alert, obeys commands, Oriented to person, place, time, situation. Cardiovascular: No deficits noted. Capillary refill < 3 seconds Patient's skin is warm and dry. Respiratory: No deficits noted. Airway is patent Respiratory effort is even, unlabored, Respiratory pattern is regular, symmetrical. GI: No deficits noted. Abdomen is round non-distended. : No deficits noted. No signs and/or symptoms were reported regarding the genitourinary system. EENT: No deficits noted. No signs and/or symptoms were reported regarding the EENT system. Derm: No deficits noted. No signs and/or symptoms reported regarding the dermatologic system. Musculoskeletal: Reports pain in right back, right shoulder, right hip. right elbow, and right side head. 22:14 Reassessment: Patient appears in no apparent distress at this time. Patient and/or pf1 family updated on plan of care and expected duration. Pain level reassessed. Patient is alert, oriented x 3, equal unlabored respirations, skin warm/dry/pink. 23:00 Reassessment: Notified Lupe Gray LVN of patient discharged and to arrange for pf1 transport back to the correction. Lupe stated will call back with ETA. 23:28 Reassessment: called back [facility], no answer.. pf1 11/10 00:30 Reassessment: Patient appears in no apparent distress at this time. Patient and/or pf1 family updated on plan of care and expected duration. Pain level reassessed. Patient is alert, oriented x 3, equal unlabored respirations, skin warm/dry/pink. pending transportation back to correction. 01:30 Reassessment: No changes from previously documented assessment. pf1 Vital Signs: 11/09 21:09 BP 127 / 49; Pulse 88; Resp 20; Temp 98.9; Pulse Ox 98% on R/A; Weight 105.23 kg; pf1 Height 5 ft. 4 in. ; Pain 6/10; 21:30 BP 134 / 56; Pulse 85; Resp 16; Pulse Ox 100% on R/A; pf1 22:30 BP 127 / 60; Pulse 87; Resp 16; Pulse Ox 98% on R/A; pf1 23:30 BP 131 / 57; Pulse 87; Resp 16; Pulse Ox 97% on R/A; Pain 3/10; pf1 11/10 00:30 BP 131 / 55; Pulse 85; Resp 16; Pulse Ox 98% on R/A; Pain 3/10; pf1 01:00 BP 121 / 54; Pulse 82; Resp 16; Pulse Ox 99% on R/A; Pain 3/10; pf1 11/09 21:09 Body Mass Index 39.82 (105.23 kg, 162.56 cm) pf1 11/09 21:09 Pain Scale: Adult pf1 23:30 Pain Scale: Adult pf1 11/10 00:30 Pain Scale: Adult pf1 01:00 Pain Scale: Adult pf1 ED Course: 11/09 21:09 Patient arrived in ED. jb4 21:10 Patient has correct armband on for positive identification. Placed in gown. Bed in low pf1 position. Call light in reach. Side rails up X2. 21:10 Arm band placed on left wrist. pf1 21:14 Darron Claros MD is Attending Physician. sp3 21:35 Triage completed. pf1 21:51 No provider procedures requiring assistance completed. pf1 21:58 Elbow Right 2 View XRAY In Process Unspecified. EDMS 21:58 Shoulder Right (2 View) XRAY In Process Unspecified. EDMS 21:58 Hip Right 2 View XRAY In Process Unspecified. EDMS 22:14 CT Head Brain wo Cont In Process Unspecified. EDMS 11/10 01:30 Provided Education on: on discharge and follow up. pf1 01:33 Patient did not have IV access during this emergency room visit. pf1 Administered Medications: No medications were administered Medication: 01:00 VIS not applicable for this client. pf1 Outcome: 11/09 22:52 Discharge ordered by . sp3 11/10 01:32 Discharged to correction. Report called to DENILSON Andrade pf1 Condition: improved Discharge instructions given to patient, correction, Instructed on discharge instructions, follow up and referral plans. Demonstrated understanding of instructions, follow-up care, 01:33 Patient left the ED. pf1 Signatures: Dispatcher [employer] EDMS Andreas Christopher, RN RN jb4 Darron Claros MD MD sp3 Ruth Katz RN RN pf1
[2023-11-10 02:17] VITALS: BP 127/60; TEMP 98.9; O2SAT 98
== END ==
LOC: ER 20:57
DX: S50.01XA Contusion of right elbow, initial encounter (principal); S40.011A Contusion of right shoulder, initial encounter; M25.551 Pain in right hip; W18.30XA Fall on same level, unspecified, initial encounter; Z88.1 Allergy status to other antibiotic agents; Z88.4 Allergy status to anesthetic agent; Z88.6 Allergy status to analgesic agent; Z88.8 Allergy status to other drugs, medicaments and biological substances; Z91.040 Latex allergy status
CPT/HCPCS: 70450; 99283

== ENCOUNTER 2024-12-30 17:56 | Emergency (ER) | payer OTHER ==
--- NOTE | 2024-12-30 19:15 | RAD REPORT ---
EXAMINATION: XR PELVIS CLINICAL INDICATION: Female, 59 years old. [facility] MA[facility] PAIN Bed Name: 18 TECHNIQUE: AP Pelvis radiograph was obtained. COMPARISON: 02/07/2022 FINDINGS: No evidence of fracture or dislocation. Left femoral neck compression screw and femoral sha ft intramedullary nail in satisfactory alignment. Mild to moderate bilateral hip joint degenerative changes. No evidence of AVN. Soft tissues are unremarkable. IMPRESSION: No acute osseous abnormalities. Left femoral neck fixation hardware and bilateral hip joint degenerat galina changes.
--- NOTE | 2024-12-30 19:38 | RAD REPORT ---
EXAM: CT brain without contrast HISTORY: Pain;Trauma COMPARISON: 07/26/2022 TECHNIQUE: Multiple contiguous axial images were obtained and a CT of the brain without contrast. Sag ittal and coronal reformats were performed. FINDINGS: No evidence of hydrocephalus, intracranial hemorrhage, or extra-axial fluid collection. The brain is normal in morphology. Small calcified left parietal extra-axial lesion measuring 6 mm, stable, may represent a small calcif ied meningioma. The calvarium is intact. 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 Left parietal scalp swelling and hematoma noted. The visualized paranasal sinuses and mastoid air cells are essentially clear. IMPRESSION: No evidence of acute intracranial abnormality. Left parietal scalp swelling and hematoma noted. EXAM: CT of the cervical spine without contrast HISTORY: Pain;Trauma COMPARISON: None TECHNIQUE: Multiple contiguous axial images were obtained in a CT of the cervical spine without contr ast. Sagittal and coronal reformats were performed. FINDINGS: The vertebral bodies demonstrate normal height and alignment. No evidence of acute fracture or subluxation.. No degenerative changes are present. No prevertebral soft tissue swelling is seen. The posterior facets are well aligned. Normal alignment of the skull base with the cervical spine is seen. The lung apices are unremarkable. IMPRESSION: No evidence of acute osseous abnormality of the cervical spine.
--- NOTE | 2024-12-30 19:44 | ER ---
Nurse's Notes [facility] Name: Norma Ruiz Age: 59 yrs Sex: Female : 1965 Arrival Date: 12/30/2024 Time: 17:56 Bed 18 Private MD: Diagnosis: Fall on same level, unspecified;Unspecified injury of head, initial encounter Presentation: 12/30 18:05 Chief complaint: EMS states: Called to [facility] due to patient having a cm10 fall. Pt states that she slipped and fell after using the restroom due to the floor being wet. Pt hit head no loc. Pt noted to have abrasion and hematoma to left side of head. Pt taking plavix and ASA daily. Coronavirus screen: Client denies travel out of the [place] in the last 14 days. Ebola Screen: Patient denies travel to an Ebola-affected area in the 21 days before illness onset. Initial Sepsis Screen: Does the patient meet any 2 criteria? No. Patient's initial sepsis screen is negative. Does the patient have a suspected source of infection? No. Patient's initial sepsis screen is negative. Risk Assessment: Do you want to hurt yourself or someone else? Patient reports no desire to harm self or others. Onset of symptoms was December 30, 2024. Transition of care: patient was received from another setting of care ([facility]. 18:05 Method Of Arrival: EMS: [facility] cm10 18:05 Acuity: LEWIS 3 cm10 Triage Assessment: 18:08 General: Appears in no apparent distress. comfortable, Behavior is calm, cooperative. cm10 Pain: Complains of pain in back of head Pain does not radiate. Pain currently is 4 out of 10 on a pain scale. Quality of pain is described as dull. Neuro: No deficits noted. Level of Consciousness is awake, alert, obeys commands, Oriented to person, place, time, situation, Appropriate for age Reports headache. Respiratory: No deficits noted. Airway is patent Respiratory effort is even, unlabored, Respiratory pattern is regular, symmetrical. Injury Description: Abrasion sustained to back of head. Historical: - Allergies: 18:07 metronizadole; cm10 18:07 Morphine; cm10 18:07 Prednisone; cm10 18:07 CEPHALOSPORINS; cm10 18:07 Latex; cm10 18:07 Aleve; cm10 18:07 Novocain; cm10 18:07 Tuberculin PPD; cm10 - Home Meds: 20:03 Aspirin Oral [Active]; duloxetine Oral [Active]; Ibuprofen Oral [Active]; Insulin aa10 Glargine Sub-Q [Active]; insulin lispro subcutaneous [Active]; Melatonin Oral [Active]; Metoprolol Tartrate Oral [Active]; Nitroglycerin SL [Active]; Plavix Oral [Active]; pramoxine Topical [Active]; rosuvastatin Oral [Active]; Singulair Oral [Active]; Timolol Maleate Opht [Active]; torsemide Oral [Active]; Xyzal Oral [Active]; - PMHx: 18:07 Acute Kidney Failure; diabetes mellitus; diabetic retinopathy; macular edema; cm10 Hyperlipidemia; Major Depressive Disorder; vitamin d defiency; - Immunization history:: Adult Immunizations up to date. - Infectious Disease History:: Denies. - Social history:: Smoking status: Patient denies any tobacco usage or history of. - Code Status:: DNAR. Screenin:18 [facility] ED Fall Risk Assessment (Adult) History of falling in the last 3 months, aa10 including since admission Yes- single mechanical fall (1 pt) Confusion or Disorientation No (0 pts) Intoxicated or Sedated No (0 pts) Impaired Gait Yes (1 pt) Mobility Assist Device Used Yes (1 pt) Altered Elimination No (0 pt) Score/Fall Risk Level 3 or more points = High Risk Oriented to surroundings, Maintained a safe environment, Educated pt \T\ family on fall prevention, incl call for assistance when getting out of bed, Assessed \T\ reinforced patient's understanding of fall precautions, Provided non-skid footwear, Hourly rounding (assess needs \T\ fall precautionary measures) done, Used ambulatory aids as needed (educated on \T\ assisted with), Implemented a Fall Risk Plan of Care. Abuse screen: Denies threats or abuse. Denies injuries from another. Nutritional screening: No deficits noted. Tuberculosis screening: No symptoms or risk factors identified. Assessment: 19:17 Reassessment: Patient appears in no apparent distress at this time. No changes from aa10 previously documented assessment. Patient and/or family updated on plan of care and expected duration. Pain level reassessed. Patient is alert, oriented x 3, equal unlabored respirations, skin warm/dry/pink. Patient denies pain at this time. Patient states feeling better. Patient states symptoms have improved. General: Appears in no apparent distress. Pain: Denies pain. Neuro: Level of Consciousness is awake, alert, obeys commands, Oriented to person, place, time, situation, Appropriate for age. Cardiovascular: No deficits noted. Capillary refill < 3 seconds. Respiratory: No deficits noted. Airway is patent. 19:19 Pain: Denies pain. Neuro: Oriented to person, place, time, situation, Distributor Sales Manager are equal aa10 bilaterally Moves all extremities. Cardiovascular: Capillary refill < 3 seconds. 20:15 Reassessment: patient has been discharged, she is pending transfer back to her nursing aa10 home, via EMS, report was called to [facility], who stated EMS will be at the hospital to pick patient up. will continue plan of care. 23:53 Reassessment: Patient appears in no apparent distress at this time. No changes from aa10 previously documented assessment. Patient and/or family updated on plan of care and expected duration. Pain level reassessed. Patient is alert, oriented x 3, equal unlabored respirations, skin warm/dry/pink. PATIENT is still pending EMS, patient moved bowel ,and she was cleaned and made comfortable in bed. 12/31 00:15 Reassessment: Patient appears in no apparent distress at this time. No changes from aa10 previously documented assessment. Patient and/or family updated on plan of care and expected duration. Pain level reassessed. Patient is alert, oriented x 3, equal unlabored respirations, skin warm/dry/pink. 00:33 Reassessment: report given to EMS Meena, her to pick patient back to her nursing aa10 home, patient is conscious, oriented and alert, with GCS of 15/15. Vital Signs: 12/30 18:05 BP 120 / 58; Pulse 68; Resp 15; Temp 98.3; Pulse Ox 96% on R/A; Pain 4/10; cm10 19:18 BP 113 / 51; Pulse 72; Resp 18 S; Temp 98.2; Pulse Ox 97% on R/A; aa10 23:54 BP 110 / 62; Pulse 84; Resp 16; Temp 98; Pulse Ox 99% on R/A; aa10 18:05 Pain Scale: Adult cm10 ED Course: 17:58 Patient arrived in ED. cm10 17:58 Sigrid Firedman FNP-C is [facility]. kb 17:58 Ivan Alatorre MD is Attending Physician. kb 18:07 Triage completed. cm10 18:08 Arm band placed on right wrist. Patient placed in an exam room, on a stretcher. cm10 18:32 Pelvis XRAY In Process Unspecified. EDMS 18:49 CT Head C Spine In Process Unspecified. EDMS 20:03 Patient has correct armband on for positive identification. Allergy band placed. Fall aa10 risk band placed. Placed in gown. Bed in low position. Call light in reach. Side rails up X2. Provided Education on: about plan of care. 20:12 No provider procedures requiring assistance completed. IV discontinued. aa10 21:26 [facility] updated eta 2300 -23:30. kmf Administered Medications: No medications were administered Medication: 20:03 VIS not applicable for this client. aa10 Outcome: 19:44 Discharge ordered by . kb 20:13 Discharged to home via wheelchair, aa10 20:13 Condition: good 20:13 Discharge instructions given to patient, 02/12 00:35 Discharged to halfway. aa10 Discharged to halfway. Report called to patient transferred by [facility] ,PT 2 Condition: stable Discharge instructions given to patient, Instructed on discharge instructions, Demonstrated understanding of instructions, 00:38 Patient left the ED. aa10 Signatures: Dispatcher [employer] EDAL Sigrid Friedman FNP-C FNP-Alissa Lock, RN RN cm10 Anabella Arriola [facility] Jack Galvan RN RN aa10
--- NOTE | 2024-12-30 19:44 | EDPHYS ---
Physician Documentation [facility] Name: Norma Ruiz Age: 59 yrs Sex: Female : 1965 Arrival Date: 12/30/2024 Time: 17:56 Bed 18 Private MD: ED Physician Ivan Alatorre HPI: 12/30 20:00 This 59 yrs old Female presents to ER via EMS with complaints of Fall Injury, kb Laceration To Head. 20:00 Pt is a 59 year old female who presents for head injury after a fall. states she was kb transferring from toilet and slipped in some water that was on the floor. Denies loc. Hematoma and abrasion to left side of head. Reports pain to hips but states that is normal for her. Denies any other injury or pain. . Historical: - Allergies: 18:07 metronizadole; cm10 18:07 Morphine; cm10 18:07 Prednisone; cm10 18:07 CEPHALOSPORINS; cm10 18:07 Latex; cm10 18:07 Aleve; cm10 18:07 Novocain; cm10 18:07 Tuberculin PPD; cm10 - Home Meds: 20:03 Aspirin Oral [Active]; duloxetine Oral [Active]; Ibuprofen Oral [Active]; Insulin aa10 Glargine Sub-Q [Active]; insulin lispro subcutaneous [Active]; Melatonin Oral [Active]; Metoprolol Tartrate Oral [Active]; Nitroglycerin SL [Active]; Plavix Oral [Active]; pramoxine Topical [Active]; rosuvastatin Oral [Active]; Singulair Oral [Active]; Timolol Maleate Opht [Active]; torsemide Oral [Active]; Xyzal Oral [Active]; - PMHx: 18:07 Acute Kidney Failure; diabetes mellitus; diabetic retinopathy; macular edema; cm10 Hyperlipidemia; Major Depressive Disorder; vitamin d defiency; - Immunization history:: Adult Immunizations up to date. - Infectious Disease History:: Denies. - Social history:: Smoking status: Patient denies any tobacco usage or history of. - Code Status:: DNAR. ROS: 20:01 Constitutional: As per HPI kb Exam: 20:02 Constitutional: This is a well developed, well nourished patient who is awake, alert, kb and in no acute distress. ENT: Moist Mucous membranes Neck: Trachea midline and no cervical lymphadenopathy. Supple, full range of motion without nuchal rigidity, or vertebral point tenderness. No Meningismus. Cardiovascular: Regular rate Respiratory: Respirations even and unlabored. No increased work of breathing. Talking in full sentences Back: No spinal tenderness. No costovertebral tenderness. Full range of motion. Skin: Warm, dry with normal turgor. Normal color. MS/ Extremity: Pulses equal, no cyanosis. Neurovascular intact. Full, normal range of motion. Neuro: Awake and alert, GCS 15, oriented to person, place, time, and situation. 20:02 Head/face: Noted is no obvious of injury or deformity except abrasion(s), that are mild, of the left side of the back of head, hematoma, that is mild, of the left side of the back of head, Vital Signs: 18:05 BP 120 / 58; Pulse 68; Resp 15; Temp 98.3; Pulse Ox 96% on R/A; Pain 4/10; cm10 19:18 BP 113 / 51; Pulse 72; Resp 18 S; Temp 98.2; Pulse Ox 97% on R/A; aa10 23:54 BP 110 / 62; Pulse 84; Resp 16; Temp 98; Pulse Ox 99% on R/A; aa10 18:05 Pain Scale: Adult cm10 MDM: 17:58 Medical Screening Exam initiated kb 20:02 Differential diagnosis: closed head injury, contusion, fracture. Data reviewed: vital kb signs, nurses notes. Historians other than the Patient: EMS: [facility]. Counseling: I had a detailed discussion with the patient and/or guardian regarding the historical points, exam findings, and any diagnostic results supporting the discharge/admit diagnosis, radiology results, the need for outpatient follow up, a family practitioner, to return to the emergency department if symptoms worsen or persist or if there are any questions or concerns that arise at home. 12/30 18:04 Order name: CT Head C Spine; Complete Time: 19:43 kb 12/30 18:04 Order name: Pelvis XRAY; Complete Time: 19:22 kb Administered Medications: No medications were administered Disposition Summary: 12/30/24 19:44 Discharge Ordered Notes: Location: Home kb Condition: Stable kb Diagnosis - Fall on same level, unspecified kb - Unspecified injury of head, initial encounter kb Followup: kb - With: Emergency Department - When: As needed - Reason: Worsening of condition Followup: kb - With: Private Physician - When: 2 - 3 days - Reason: Recheck today's complaints, Continuance of care, Re-evaluation by your physician Discharge Instructions: - Discharge Summary Sheet kb - Head Injury, Adult, [id number] kb Forms: - Medication Reconciliation Form kb - Antibiotic Education kb - Prescription Opioid Use kb - Patient Portal Instructions kb - Leadership Thank You Letter kb Signatures: Dispatcher [employer] EDSigrid Chairez, LEGAL ACTIVITY ADJUDICATOR-C LEGAL ACTIVITY ADJUDICATOR-Alissa Lock, RN RN cm10 Jack Galvan RN RN aa10 Corrections: (The following items were deleted from the chart) 18:04 18:04 Pelvis+RAD.RAD.BRZ ordered. [facility]
[2024-12-31 10:41] VITALS: BP 110/62; TEMP 98; O2SAT 99
== END 2024-12-31 00:38 | disposition home or self-care (01) ==
LOC: ER 17:56
DX: S00.81XA Abrasion of other part of head, initial encounter (principal); W01.0XXA Fall on same level from slipping, tripping and stumbling without subsequent striking against object, initial encounter
CPT/HCPCS: 70450; 72125; 72170; 99283

== ENCOUNTER 2025-01-24 17:49 | Inpatient (IN) | payer OTHER ==
--- NOTE | 2025-01-24 19:03 | RAD REPORT ---
EXAMINATION: Head Brain Wo Cont CLINICAL INDICATION: Female, 59 years old.CONFUSED TECHNIQUE: Axial CT images from the skull base to the vertex without intravenous contrast. Coronal an d sagittal reformatted images were created from the data set. One or more of the following dose reduction techniques were used: Automated exposure control, adjustment of the mA and/or kV according to patient size, and/or iterative reconstruction. Unless otherwise specified, incidental findings do not require dedicated imaging follow-up. [id number]. COMPARISON: 11/09/2023 FINDINGS: INTRACRANIAL: No acute intracranial hemorrhage. No hydrocephalus. No mass effect or midline shift. Mo derate chronic small vessel ischemic changes.Moderate cerebral atrophy. VASCULATURE: No visualized abnormalities in the arteries or dural venous sinuses. SCALP/SKULL: No calvarial fracture identified. No acute soft tissue abnormality. Postprocedural armstrong ges at the right globe. SINUSES: The visualized paranasal sinuses are mostly clear. No significant mastoid fluid. IMPRESSION: No acute intracranial abnormality. Cerebral atrophy with chronic small vessel ischemic changes.
[2025-01-24 20:28] LABS: Absolute Basophils 0.1 K/uL (0-0.5); Absolute Eosinophils 0.1 K/uL (0-0.5); Absolute Lymphocytes (CBC) 0.9 K/uL (0.7-4.9); Absolute Monocytes 1.3 K/uL (0.1-1.3); Absolute Neutrophil 12.8 K/uL (1.8-8.0); Basophils % 0.4 % (0-1.3); Eosinophils % 0.7 % (0-4.4); Hemoglobin 11.9 g/dL (12.0-15.0); MCH 25.6 pg (27.0-35.0); MCHC 32.3 g/dL (32.0-36.0); MCV 79.2 fL (80-100); Monocytes % 8.6 % (3.3-12.3); Neutrophils % 84.3 % (41.7-73.7); Platelets 244 thou/uL (152-406); RBC Red Blood Cell Count 4.66 M/uL (3.86-4.86); Red Cell Distribution Width 16.6 % (12.1-15.2)
[2025-01-24 21:15] LABS: PTT, Activated Partial Thromb 28.3 SECONDS (27.2-37.4); Protime INR 1.06
[2025-01-24 21:26] LABS: ALT/SGPT 52 U/L (13-56); AST/SGOT 37 U/L (15-37); Albumin 2.5 g/dL (3.4-5.0); Albumin/Globulin Ratio 0.5 (1.1-1.8); Alkaline Phosphatase 143 U/L (45-117); Anion Gap 10.6 mEq/L (5.0-15.0); BUN Blood Urea Nitrogen 25 mg/dL (7-18); Bicarbonate 27 mEq/L (21-32); Bilirubin Direct 0.2 mg/dL (0-0.2); Bilirubin Indirect, Calculated 0.4 mg/dL (0.2-0.8); Bilirubin Total 0.6 mg/dL (0.2-1.0); Globulin 4.7 g/dL (2.3-3.5); Glomerular Filtration Rate 34 ml/min (=/>90); Glucose Level 172 mg/dL (74-106); Potassium 3.6 mEq/L (3.5-5.1); Protein, Total 7.2 g/dL (6.4-8.2); Sodium Level 138 mEq/L (136-145)
[2025-01-24] MEDS ORDERED: NA CHLORIDE 0.9% 1,000 ML ONE (21:55)
[2025-01-24 22:08] LABS: Specific Gravity 1.009 (1.005-1.030); Sqamous Epithelial <5 /HPF (None Seen); Urine Bacteria <20 /HPF (<20); Urine Bilirubin NEGATIVE (Negative); Urine Blood Trace (Negative); Urine Clarity Turbid (Clear); Urine Color Light-Yellow (Yellow); Urine Culture Reflex Order REFLEXED; Urine Glucose NEGATIVE (Negative); Urine Ketones NEGATIVE (Negative); Urine Micro Reflex YN NO BILL MICROSCOPIC; Urine Nitrite 2+ (Negative); Urine Protein NEGATIVE (Negative); Urine RBC <5 /HPF (None Seen); Urine Urobilinogen Normal (Normal); Urine WBC 20-50 /HPF (<5); Urine WBC Clump Rare /HPF (None Seen)
[2025-01-24 22:16] LABS: Barbiturates NEGATIVE (NEGATIVE); Benzodiazepines NEGATIVE (NEGATIVE); Cocaine NEGATIVE (NEGATIVE); METHAMPHETAM NEGATIVE (NEGATIVE); Methadone NEGATIVE (NEGATIVE); Opiates NEGATIVE (NEGATIVE); Phencyclidine NEGATIVE (NEGATIVE); THC Cannibis NEGATIVE (NEGATIVE)
--- NOTE | 2025-01-24 22:34 | ER ---
Nurse's Notes [facility] Name: Norma Ruiz Age: 59 yrs Sex: Female : 1965 Arrival Date: 01/24/2025 Time: 17:49 Bed 15 Private MD: Diagnosis: UTI/ Urinary tract infection, site not specified;Altered mental status, unspecified Presentation: 01/24 18:05 Chief complaint: EMS states: they were toned out to [place] for hallucinations kc6 starting yesterday. facility staff reports pt finished PO antibiotics back on 01/16 for a UTI but never reevaluated. Coronavirus screen: At this time, the client does not indicate any symptoms associated with coronavirus-19. Ebola Screen: No symptoms or risks identified at this time. Initial Sepsis Screen: Does the patient meet any 2 criteria? No. Patient's initial sepsis screen is negative. Does the patient have a suspected source of infection? No. Patient's initial sepsis screen is negative. Risk Assessment: Do you want to hurt yourself or someone else? Patient reports no desire to harm self or others. Onset of symptoms was January 24, 2025. 18:05 Method Of Arrival: EMS: [facility] kc6 18:05 Acuity: LEWIS 3 kc6 Historical: - Allergies: 18:06 Aleve; kc6 18:06 CEPHALOSPORINS; kc6 18:06 Latex; kc6 18:06 Tuberculin PPD; kc6 18:06 Prednisone; kc6 18:06 Novocain; kc6 18:06 Morphine; kc6 18:06 metronizadole; kc6 - PMHx: 18:06 Acute Kidney Failure; diabetes mellitus; diabetic retinopathy; macular edema; kc6 Hyperlipidemia; Major Depressive Disorder; vitamin d defiency; - Immunization history:: Adult Immunizations up to date. - Infectious Disease History:: Denies. - Social history:: Smoking status: Patient denies any tobacco usage or history of. Screenin:05 [facility] ED Fall Risk Assessment (Adult) History of falling in the last 3 months, kc6 including since admission No falls in past 3 months (0 pts) Confusion or Disorientation No (0 pts) Intoxicated or Sedated No (0 pts) Impaired Gait Yes (1 pt) Mobility Assist Device Used Yes (1 pt) Altered Elimination No (0 pt) Score/Fall Risk Level 3 or more points = High Risk Oriented to surroundings, Maintained a safe environment, Educated pt \T\ family on fall prevention, incl call for assistance when getting out of bed. Abuse screen: Denies threats or abuse. Denies injuries from another. Nutritional screening: No deficits noted. Tuberculosis screening: No symptoms or risk factors identified. Assessment: 18:05 General: Appears in no apparent distress. comfortable, obese, well groomed, well kc6 developed, Behavior is calm, cooperative, appropriate for age. Pain: Denies pain. Neuro: Level of Consciousness is awake, alert, obeys commands, Oriented to person, place, time, situation, Appropriate for age Reports blurred vision in right eye and left eye auditory hallucinations x1 day. Cardiovascular: Capillary refill < 3 seconds. Respiratory: Airway is patent Trachea midline Respiratory effort is even, unlabored, Respiratory pattern is regular, symmetrical. GI: No signs and/or symptoms were reported involving the gastrointestinal system. : Denies burning with urination, urinary frequency, urgency. EENT: No signs and/or symptoms were reported regarding the EENT system. Derm: No signs and/or symptoms reported regarding the dermatologic system. Skin is intact, is healthy with good turgor, Skin is pink, warm \T\ dry. Musculoskeletal: No signs and/or symptoms reported regarding the musculoskeletal system. Circulation, motion, and sensation intact. Range of motion: intact in all extremities. 19:30 Reassessment: No changes from previously documented assessment. Patient and/or family rg5 updated on plan of care and expected duration. Pain level reassessed. 20:56 Reassessment: No changes from previously documented assessment. Patient and/or family rg5 updated on plan of care and expected duration. Pain level reassessed. General: Appears in no apparent distress. comfortable, Behavior is calm, cooperative, appropriate for age. Pain: Denies pain. Neuro: Level of Consciousness is awake, alert, obeys commands, Oriented to person, place, time, situation, Appropriate for age Reports blurred vision. Cardiovascular: Patient's skin is warm and dry. Respiratory: Airway is patent Trachea midline Respiratory effort is even, unlabored, Respiratory pattern is regular, symmetrical. GI: Abdomen is round obese. : Denies urgency. EENT: No signs and/or symptoms were reported regarding the EENT system. Derm: Skin is intact, Skin is dry, Skin is pink, warm \T\ dry. Skin temperature is warm. Musculoskeletal: Circulation, motion, and sensation intact. Range of motion: intact in all extremities. 21:35 Reassessment: No changes from previously documented assessment. Patient and/or family rg5 updated on plan of care and expected duration. Pain level reassessed. 22:16 Reassessment: No changes from previously documented assessment. Patient and/or family rg5 updated on plan of care and expected duration. Pain level reassessed. 23:03 Reassessment: No changes from previously documented assessment. Patient and/or family rg5 updated on plan of care and expected duration. Pain level reassessed. Vital Signs: 18:05 BP 127 / 53; Pulse 73; Resp 18 S; Pulse Ox 99% on R/A; Weight 108.86 kg (R); Height 5 kc6 ft. 4 in. (R); 19:00 BP 116 / 54; Pulse 76; Resp 17; Pulse Ox 98% on R/A; Pain 0/10; rg5 20:30 BP 95 / 52; Pulse 51; Resp 17; Pulse Ox 97% on R/A; rg5 21:00 BP 117 / 70; Pulse 78; Resp 17; Pulse Ox 99% on R/A; rg5 22:15 BP 132 / 91; Pulse 77; Resp 17 S; Pulse Ox 100% on R/A; Pain 0/10; rg5 23:03 BP 127 / 59; Pulse 89; Resp 18; Pulse Ox 99% on R/A; Pain 0/10; rg5 18:05 Body Mass Index 41.20 (108.86 kg, 162.56 cm) [facility] 19:00 Pain Scale: Adult rg5 22:15 Pain Scale: Adult rg5 23:03 Pain Scale: Adult rg5 ED Course: 18:00 Patient arrived in ED. kc6 18:03 Lola Mills PA-C is PHCP. sb4 18:03 Chaz Gill MD is Attending Physician. sb4 18:05 Mirna Marino, BRIJESH is Primary Nurse. kc6 18:05 Patient has correct armband on for positive identification. Bed in low position. Call kc light in reach. Side rails up X2. Pulse ox on. NIBP on. Door closed. Noise minimized. Lights dimmed. Warm blanket given. Pillow given. Verbal reassurance given. 18:05 Patient maintains SpO2 saturation greater than 95% on room air. kc6 18:06 Triage completed. kc6 18:06 Arm band placed on. kc6 18:56 Head Brain Wo Cont CT In Process Unspecified. EDMS 19:20 Report given to BRIJESH Seth. kc6 20:27 EKG done, by behavioral health technician. bf2 20:30 No provider procedures requiring assistance completed. rg5 20:30 Inserted saline lock: 20 gauge in right antecubital area, using aseptic technique. rg5 Blood collected. Flushed with 10 mL NS. 22:34 Bob Ariza MD is Hospitalizing Provider. sb4 23:09 Provided Education on: needs for admit. rg5 23:09 Patient admitted, IV remains in place. intact, No redness/swelling at site. rg5 Administered Medications: 22:00 Drug: NS 0.9% IV 1000 ml IV at 1 bolus Per protocol; to be given as a bolus over 60 rg5 minutes Route: IV; Rate: 1 bolus; Site: right antecubital; 01/25 00:09 Follow up: IV Status: Completed infusion rg5 01/24 22:45 Drug: Meropenem IV 1 grams IV at calculated rate once; (mix in NS 100 mL) Route: IV; rg5 Rate: calculated rate; Site: right antecubital; 01/25 00:09 Follow up: IV Status: Completed infusion; IV Intake: 100ml rg5 Medication: 01/24 22:16 VIS not applicable for this client. rg5 Intake: 01/25 00:09 IV: 100ml; Total: 100ml. rg5 Outcome: 01/24 22:34 Decision to Hospitalize by Provider. sb4 23:08 Admitted to ER Hold. [email or web address] rg5 23:08 Condition: stable 23:08 Instructed on the need for admit, 01/25 01:25 Patient left the ED. rg5 Signatures: Dispatcher [employer] Mirna Love, RN RN [id number] Lola Mills, PA-C PA-C sb4 Roxann Parada bf2 Levi Phillips RN RN rg5
--- NOTE | 2025-01-24 22:34 | EDPHYS ---
Physician Documentation [facility] Name: Norma Ruiz Age: 59 yrs Sex: Female : 1965 Arrival Date: 01/24/2025 Time: 17:49 Bed 15 Private MD: AMANDA Physician Chaz Gill HPI: 01/24 19:34 This 59 yrs old Female presents to ER via EMS with complaints of Urinary Problem. sb4 19:34 senior care called EMS for concerns of hallucinations. They state that she has become sb4 more altered over the past few days and his having visual and auditory hallucinations. They say that she did sustain a mechanical fall 2 days ago, but do not believe that she hit her head. They state that she was being treated for an aggressive UTI last month and completed her antibiotics a week and a half ago. They checked a CBC and CMP today and stated that it was normal. They also got a UA but will not be able to get the results for another 48 hours. Historical: - Allergies: 18:06 Aleve; kc6 18:06 CEPHALOSPORINS; kc6 18:06 Latex; kc6 18:06 Tuberculin PPD; kc6 18:06 Prednisone; kc6 18:06 Novocain; kc6 18:06 Morphine; kc6 18:06 metronizadole; kc6 - PMHx: 18:06 Acute Kidney Failure; diabetes mellitus; diabetic retinopathy; macular edema; kc6 Hyperlipidemia; Major Depressive Disorder; vitamin d defiency; - Immunization history:: Adult Immunizations up to date. - Infectious Disease History:: Denies. - Social history:: Smoking status: Patient denies any tobacco usage or history of. ROS: 19:34 Unable to obtain ROS due to altered mental status, sb4 Vital Signs: 18:05 BP 127 / 53; Pulse 73; Resp 18 S; Pulse Ox 99% on R/A; Weight 108.86 kg (R); Height 5 kc6 ft. 4 in. (R); 19:00 BP 116 / 54; Pulse 76; Resp 17; Pulse Ox 98% on R/A; Pain 0/10; rg5 20:30 BP 95 / 52; Pulse 51; Resp 17; Pulse Ox 97% on R/A; rg5 21:00 BP 117 / 70; Pulse 78; Resp 17; Pulse Ox 99% on R/A; rg5 22:15 BP 132 / 91; Pulse 77; Resp 17 S; Pulse Ox 100% on R/A; Pain 0/10; rg5 23:03 BP 127 / 59; Pulse 89; Resp 18; Pulse Ox 99% on R/A; Pain 0/10; rg5 18:05 Body Mass Index 41.20 (108.86 kg, 162.56 cm) kc6 19:00 Pain Scale: Adult rg5 22:15 Pain Scale: Adult rg5 23:03 Pain Scale: Adult rg5 MDM: 18:03 Medical Screening Exam initiated sb4 22:33 Data reviewed: vital signs, nurses notes, EMS record, diagnostic data from outside [facility] facility, lab test result(s), radiologic studies, and as a result, I will admit patient. Counseling: I had a detailed discussion with the patient and/or guardian regarding the historical points, exam findings, and any diagnostic results supporting the discharge/admit diagnosis, the presence of at least one elevated blood pressure reading (>120/80) during this emergency department visit, lab results, the need for further work-up and treatment in the hospital. 01/24 18:04 Order name: UAM; Complete Time: 22:15 sb4 01/24 18:04 Order name: UDS; Complete Time: 22:17 sb4 01/24 18:09 Order name: Acetaminophen; Complete Time: 21:48 sb4 01/24 18:09 Order name: Basic Metabolic Panel; Complete Time: 21:48 sb4 01/24 18:09 Order name: CBC with Diff; Complete Time: 20:32 sb4 01/24 18:09 Order name: ETOH Level; Complete Time: 21:49 sb4 01/24 18:09 Order name: Hepatic Function; Complete Time: 21:48 sb4 01/24 18:09 Order name: PT-INR; Complete Time: 21:16 sb4 01/24 18:09 Order name: Ptt, Activated; Complete Time: 21:16 sb4 01/24 18:09 Order name: Salicylate; Complete Time: 22:14 sb4 01/24 22:18 Order name: Urine Culture EDMI 01/24 23:51 Order name: Lactate w/ 2H reflex if indic. EDMS 01/24 23:51 Order name: T4 Free EDMI 01/24 23:51 Order name: Thyroid Stimulating Hormone EDMI 01/24 23:51 Order name: Urinalysis w/ reflexes EDMS 01/24 23:51 Order name: CBC with Automated Diff EDMS 01/24 23:51 Order name: CBC with Automated Diff EDMS 01/24 23:51 Order name: Comprehensive Metabolic Panel EDMS 01/24 23:51 Order name: Comprehensive Metabolic Panel EDMS 01/24 18:04 Order name: Head Brain Wo Cont CT; Complete Time: 19:20 sb4 01/24 18:09 Order name: EKG - Nurse/Tech; Complete Time: 20:27 sb4 01/24 18:09 Order name: IV Saline Lock; Complete Time: 20:37 sb4 01/24 18:09 Order name: Labs collected and sent; Complete Time: 20:17 sb4 01/24 20:31 Order name: Misc. Order: Recollect Green Top and Red Top; Complete Time: 20:37 vk 01/24 20:47 Order name: Misc. Order: recollect red, blue, and green; Complete Time: 20:49 sb4 EC:31 Rate is 78 beats/min. Rhythm is regular, Normal Sinus Rhythm. [place] interval is normal at sb4 148 msec. QRS interval is normal at 74 msec. QT interval is normal at 424 msec. No Q waves. T waves are Normal. Clinical impression: No evidence of ischemia. Interpreted by me. Reviewed by me. Administered Medications: 22:00 Drug: NS 0.9% IV 1000 ml IV at 1 bolus Per protocol; to be given as a bolus over 60 rg5 minutes Route: IV; Rate: 1 bolus; Site: right antecubital; 01/25 00:09 Follow up: IV Status: Completed infusion rg5 01/24 22:45 Drug: Meropenem IV 1 grams IV at calculated rate once; (mix in NS 100 mL) Route: IV; rg5 Rate: calculated rate; Site: right antecubital; 01/25 00:09 Follow up: IV Status: Completed infusion; IV Intake: 100ml rg5 Disposition: 01/24 22:39 Chart complete. sb4 Disposition Summary: 01/24/25 22:34 Hospitalization Ordered Notes: Hospitalization Status: Inpatient Admission sb4 Provider: Bob Ariza sb4 Location: Telemetry/MedSur (Inpatient) sb4 Condition: Fair sb4 Problem: new sb4 Symptoms: are unchanged sb4 Bed/Room Type: Standard sb4 Room Assignment: [id number](01/24/25 23:58) vk Diagnosis - UTI/ Urinary tract infection, site not specified sb4 - Altered mental status, unspecified sb4 Forms: - Medication Reconciliation Form sb4 - SBAR form sb4 - Leadership Thank You Letter sb4 Signatures: Dispatcher [employer] Mirna Love, RN RN kc6 Lola Mills PA-C PAAlf sb4 Cristina Roberts Rommel, RN RN rg5 Corrections: (The following items were deleted from the chart) 18:10 18:10 ACETAMINOPHEN+C.LAB.BRZ ordered. EDMS EDMS 18:10 18:10 BASIC METABOLIC PANEL+C.LAB.BRZ ordered. EDMS EDMS 18:10 18:10 CBC+H.LAB.BRZ ordered. EDMS EDMS 18:10 18:10 ETHANOL+C.LAB.BRZ ordered. EDMS EDMS 18:10 18:10 HEPATIC FUNCTION+C.LAB.BRZ ordered. EDMS EDMS 18:10 18:10 PROTIME (+INR)+COAG.LAB.BRZ ordered. EDMS EDMS 18:10 18:10 PTT, ACTIVATED+COAG.LAB.BRZ ordered. EDMS EDMS 18:10 18:10 SALICYLATE+C.LAB.BRZ ordered. EDMS EDMS 23:58 22:34 sb4 vk
[2025-01-24] MEDS ORDERED: NA CHLORIDE 0.9% 100 ML ONE (22:57)
[2025-01-24] MEDS ORDERED: Meropenem 1000 MG/VIAL IV ONE (22:57)
[2025-01-24] MEDS ORDERED: ACETAMINOPHEN 650MG/RECT SUPP PR PRN (23:43)
[2025-01-24] MEDS ORDERED: ONDANSETRON 4 MG/2 ML VIAL IV PRN (23:43)
[2025-01-24] MEDS ORDERED: VANCOMYCIN 1 GM in NA CHLORIDE 0.9% 250 ML IVPB SCH (23:45)
--- NOTE | 2025-01-25 00:29 | P.HP ---
Patient History Date of Service: 01/25/25 History of Present Illness: This is a 59-year-old with a past medical history of type 2 diabetes, hyperlipidemia, depressive disorder presenting with altered mental status. I am unable to elicit any kind of history from her. Per the ED notes she had a fall 2 days ago. Last month she completed antibiotic therapy for ESBL UTI. There is no family at bedside. CT of the head did not reveal any acute abnormalities aside chronic small vessel ischemic change. Allergies Cephalosporins Allergy (Unknown, Verified 01/25/25 03:31) Rash latex Allergy (Unknown, Verified 01/25/25 03:31) Rash metronidazole Allergy (Unknown, Verified 01/25/25 03:31) Rash morphine Allergy (Unknown, Verified 01/25/25 03:31) Rash naproxen [From Aleve] Allergy (Unknown, Verified 01/25/25 03:31) Rash prednisone Allergy (Unknown, Verified 01/25/25 03:31) Rash procaine [From Novocain] Allergy (Unknown, Verified 01/25/25 03:31) Rash tuberculin,PPD,multi-puncture Allergy (Unknown, Verified 01/25/25 03:31) Rash Review of Systems is unable to be obtained Physical Examination - Physical Exam General: Alert, Obese HEENT: Normocephalic Neck: Supple Respiratory: Clear to auscultation bilaterally Capillary refill: <2 Seconds Gastrointestinal: Normal bowel sounds Musculoskeletal: No clubbing Integumentary: No breakdown Neurological: Abnormal speech - Studies Laboratory Data (last 24 hrs) 01/24/25 01/24/25 01/24/25 20:45 20:45 20:15 WBC 15.10 H Hgb 11.9 L Hct 37.0 Plt Count 244 PT 12.0 INR 1.06 APTT 28.3 Sodium 138 Potassium 3.6 BUN 25 H Creatinine 1.72 H Glucose 172 H Total Bilirubin 0.6 AST 37 ALT 52 Alkaline Phosphatase 143 H Assessment and Plan - Plan Urinary tract infection Acute metabolic encephalopathy Hypotension Acute kidney injury Diabetes mellitus Hyperlipidemia Depressive disorder Obesity Anemia Continue Merrem and vancomycin Blood pressure improved after bolus in the emergency room Urine culture pending Follow-up on CBC and BMP TSH pending N.p.o. until mentation improved Needs a sitter at bedside DVT prophylaxis with SCDs - Advance Directives Does patient have a Living Will: No Does patient have a Durable POA for Healthcare: No
[2025-01-25] MEDS: LORazepam 2 MG/ML VIAL ONE (03:29)
[2025-01-25] MEDS: HEPARIN 5000 UNIT/ML 1 ML VIAL SQ SCH (03:40)
[2025-01-25 03:57] VITALS: BMI 40.4
[2025-01-25] MEDS: VANCOMYCIN 2 GM in NA CHLORIDE 0.9% 500 ML IVPB ONE (04:00)
[2025-01-25] MEDS: LORazepam 2 MG/ML VIAL IM ONE (04:23)
[2025-01-25 05:55] LABS: Absolute Basophils 0.1 K/uL (0-0.5); Absolute Eosinophils 0.3 K/uL (0-0.5); Absolute Lymphocytes (CBC) 0.6 K/uL (0.7-4.9); Absolute Neutrophil 10.9 K/uL (1.8-8.0); Basophils % 0.6 % (0-1.3); Eosinophils % 2.4 % (0-4.4); Hemoglobin 12.4 g/dL (12.0-15.0); Lymphocytes % 4.4 % (15.3-44.8); MCH 25.5 pg (27.0-35.0); MCHC 31.7 g/dL (32.0-36.0); MCV 80.4 fL (80-100); MPV 8.9 fL (7.6-11.3); Monocytes % 7.6 % (3.3-12.3); Nucleated Red Blood Cells % 0.1 % (0-0); Platelets 257 thou/uL (152-406); RBC Red Blood Cell Count 4.86 M/uL (3.86-4.86); Red Cell Distribution Width 16.7 % (12.1-15.2)
[2025-01-25 06:33] LABS: Albumin 2.8 g/dL (3.4-5.0); Albumin/Globulin Ratio 0.6 (1.1-1.8); Bilirubin Total 0.6 mg/dL (0.2-1.0); Globulin 4.9 g/dL (2.3-3.5); Protein, Total 7.7 g/dL (6.4-8.2); Thyroid Stimulating Hormone 1.93 uIU/mL (0.358-3.740)
[2025-01-25] MEDS ORDERED: LORazepam 2 MG/ML VIAL IV PRN (07:39)
[2025-01-25] MEDS: NA CHLORIDE 0.9% 1,000 ML IV SCH (11:06)
[2025-01-25] MEDS: Meropenem 1,000 MG in NA CHLORIDE 0.9% 100 ML IV SCH (11:06)
[2025-01-25] MEDS: Mupirocin NASAL 2 APPL/1 GM TUBE NAS SCH (11:07)
--- NOTE | 2025-01-25 11:21 | RAD REPORT ---
Procedure: Chest Single View HISTORY: PICC line insertion FINDINGS: PICC line has its tip near the junction of the SVC and right atrium.
[2025-01-25] MEDS: VANCOMYCIN 1.5 GM in NA CHLORIDE 0.9% 500 ML IVPB SCH (17:00)
[2025-01-25 22:06] VITALS: O2SAT 96
--- NOTE | 2025-01-26 00:56 | P.PN ---
Subjective Date of Service: 01/25/25 Subjective: No new changes, No C/O voiced, Improving Review of Systems 10-point ROS is otherwise unremarkable Physical Examination - Vital Signs Temperature: 98.0 F Blood Pressure: 152/65 Pulse: 90 Respirations: 16 Pulse Ox (%): 95 - Physical Exam General: Alert, In no apparent distress, Oriented x1 HEENT: Atraumatic, PERRLA, EOMI Neck: Supple, JVD not distended Respiratory: Clear to auscultation bilaterally, Normal air movement Cardiovascular: Regular rate/rhythm, Normal S1 S2 Gastrointestinal: Normal bowel sounds, Soft and benign, Non-distended, No tenderness Musculoskeletal: No tenderness Integumentary: No rashes Neurological: Other ( no focal deficits) - Studies Medications List Reviewed: Yes Assessment & Plan - Plan plan: 1. Altered mental status secondary to UTI with toxic supple apathy; continue with IV fluids and IV antibiotics 2. Dementia; continue with medication for dementia 3. - Advance Directives Does patient have a Living Will: No Does patient have a Durable POA for Healthcare: No
[2025-01-26] MEDS: GLUCAGON 1 MG/VIAL IM PRN (08:19)
[2025-01-26 08:27] LABS: Absolute Eosinophils 0.2 K/uL (0-0.5); Absolute Lymphocytes (CBC) 0.7 K/uL (0.7-4.9); Absolute Monocytes 0.9 K/uL (0.1-1.3); Absolute Neutrophil 9.4 K/uL (1.8-8.0); Basophils % 0.4 % (0-1.3); Eosinophils % 1.7 % (0-4.4); Hematocrit 40.2 % (36.0-45.0); Hemoglobin 12.5 g/dL (12.0-15.0); Lymphocytes % 5.8 % (15.3-44.8); MCH 25.3 pg (27.0-35.0); MCHC 31.2 g/dL (32.0-36.0); MCV 81.2 fL (80-100); MPV 8.7 fL (7.6-11.3); Monocytes % 8.3 % (3.3-12.3); Neutrophils % 83.8 % (41.7-73.7); Platelets 271 thou/uL (152-406); RBC Red Blood Cell Count 4.95 M/uL (3.86-4.86); Red Cell Distribution Width 17.3 % (12.1-15.2)
[2025-01-26 09:25] LABS: Albumin 3.1 g/dL (3.4-5.0); Albumin/Globulin Ratio 0.6 (1.1-1.8); Anion Gap 13.6 mEq/L (5.0-15.0); Bilirubin Total 0.8 mg/dL (0.2-1.0); Globulin 5.4 g/dL (2.3-3.5); Magnesium 2.3 mg/dL (1.6-2.4); Potassium 3.6 mEq/L (3.5-5.1); Protein, Total 8.5 g/dL (6.4-8.2)
[2025-01-26] MEDS: CIPROFLOXACIN HCL 500 MG TAB PO SCH (11:24)
[2025-01-26] MEDS ORDERED: VANCOMYCIN 2 GM in NA CHLORIDE 0.9% 500 ML IVPB SCH (16:00)
[2025-01-26 19:58] VITALS: BP 120/62; TEMP 98.4
--- NOTE | 2025-01-27 11:09 | EKG ---
Test Date: 2025-01-24 Test Time: 20:24:44 Cooker Soda: AF MEASUREMENT RESULTS: Intervals: Rate: 78 NM: 148 QRSD: 74 QT: 424 QTc: 483 [place]: P: 67 NM: 148 QRS: 98 T: 67 INTERPRETIVE STATEMENTS: Normal sinus rhythm Rightward axis Possible Anterior infarct, age undetermined Abnormal ECG No previous ECG available for comparison Electronically Signed On 01-27-25 11:02:02 CDT by Marck Mcduffie
--- NOTE | 2025-01-30 12:40 | P.DS ---
Discharge Date: 01/26/25 Disposition: TRANSFER TO LONGTERM Discharge Condition: GOOD Brief History of Present Illness: This is a 59-year-old with a past medical history of type 2 diabetes, hyperlipidemia, depressive disorder presenting with altered mental status. I am unable to elicit any kind of history from her. Per the ED notes she had a fall 2 days ago. Last month she completed antibiotic therapy for ESBL UTI. There is no family at bedside. CT of the head did not reveal any acute abnormalities aside chronic small vessel ischemic change. Hospital Course: Patient was diagnosed with urinary tract infection. Patient continue with antibiotics. Patient's mentation back to baseline and patient is stable for discharge. Patient will discharge back to nursing facility for further care. Vital Signs/Physical Exam: Temp Pulse Resp BP Pulse Ox 98.4 F 92 H 18 120/62 98 01/26/25 19:56 01/26/25 19:56 01/26/25 19:56 01/26/25 19:56 01/26/25 19:56 General: Alert, In no apparent distress, Demented Laboratory Data at Discharge: WBC 11.30 thou/uL (4.3-10.9) H 01/26/25 08:11 Hgb 12.5 g/dL (12.0-15.0) 01/26/25 08:11 Hct 40.2 % (36.0-45.0) 01/26/25 08:11 Plt Count 271 thou/uL (152-406) 01/26/25 08:11 PT 12.0 SECONDS (10-13.0) 01/24/25 20:45 INR 1.06 01/24/25 20:45 APTT 28.3 SECONDS (27.2-37.4) 01/24/25 20:45 Sodium 143 mEq/L (136-145) D 01/26/25 08:59 Potassium 3.6 mEq/L (3.5-5.1) 01/26/25 08:59 BUN 22 mg/dL (7-18) H 01/26/25 08:59 Creatinine 1.50 mg/dL (0.55-1.02) H 01/26/25 08:59 Glucose 56 mg/dL (74-106) L 01/26/25 08:59 Magnesium 2.3 mg/dL (1.6-2.4) 01/26/25 08:59 Total Bilirubin 0.8 mg/dL (0.2-1.0) 01/26/25 08:59 AST 65 U/L (15-37) H 01/26/25 08:59 ALT 78 U/L (13-56) H 01/26/25 08:59 Alkaline Phosphatase 172 U/L (45-117) H 01/26/25 08:59 Home Medications: Acetaminophen 325 mg PO Q4HP PRN 01/27/25 Acetaminophen 650 mg PO Q4HP PRN 01/27/25 Aspirin 81 mg PO DAILY 01/27/25 Bimatoprost [Lumigan] 1 drop OP BEDTIME 01/27/25 Brimonidine Tartrate 1 drop OP BID 01/27/25 Brinzolamide [Azopt] 1 drop OP TID 01/27/25 Carboxymethylcellulose Sodium [Artificial Tears] 2 drop OP BID 01/27/25 Cetirizine HCl 10 mg PO DAILY 01/27/25 Ciprofloxacin HCl [Cipro] 500 mg PO BID 01/27/25 Clopidogrel Bisulfate [Plavix] 75 mg PO DAILY 01/27/25 Dextrose Oral [Glucose Oral 15 gm Tube] 32 ml PO Q4HP PRN 01/27/25 Fluvoxamine Maleate 100 mg PO BEDTIME 01/27/25 Guaifenesin/Dextromethorphan [Diabetic Tussin Dm Liquid] 10 ml PO Q4HP PRN 01/27/25 Insulin Aspart [Novolog Flexpen] 4 unit SQ AC 01/27/25 Insulin Glargine,Hum.rec.anlog [Basaglar Kwikpen U-100] 25 unit SQ DAILY 01/27/25 Metoprolol Succinate 100 mg PO DAILY 01/27/25 Montelukast [Singulair] 10 mg PO BEDTIME 01/27/25 Netarsudil Mesylate [Rhopressa] 2.5 ml OP BEDTIME 01/27/25 Paroxetine HCl [Paxil] 60 mg PO BEDTIME 01/27/25 Potassium Chloride 20 meq PO DAILY 01/27/25 Risperidone [Risperdal] 0.25 mg PO BEDTIME 01/27/25 Rosuvastatin [Crestor] 10 mg PO BEDTIME 01/27/25 Timolol Maleate [Timoptic] 1 drop OP BID 01/27/25 Torsemide [Soaanz] 40 mg PO DAILY 01/27/25 glucagon HCL [Glucagon HCl] 1 mg SQ PRN PRN 01/27/25 Physician Discharge Instructions: -DC IV and DC back to intermediate -Follow-up with PCP in 1 to 2 weeks -Follow-up with neurologist in 1 to 2 weeks -Please call Dr. Blankenship at [phone] if any questions regarding hospital stay -Please call nursing station at [phone] if any nursing or medication questions -Return to the emergency room if symptoms worsen Diet: ADA Activity: Fall precautions Followup: Art Black MD [Primary Care Provider] - Time spent managing pt's care (in minutes): 35
== END 2025-01-26 20:19 | DRG 689 ==
LOC: ER 17:49 → 4TH 23:43
PROVIDERS: ADMIT Family Medicine; ATTEND Hospitalist
PROC: 02HV33Z Insertion of Infusion Device into Superior Vena Cava, Percutaneous Approach (ICD-10-PCS; principal; 2025-01-25)
DX: N39.0 Urinary tract infection, site not specified (principal); G93.41 Metabolic encephalopathy; N17.9 Acute kidney failure, unspecified; Z68.41 Body mass index [BMI] 40.0-44.9, adult; F03.93 Unspecified dementia, unspecified severity, with mood disturbance; E66.9 Obesity, unspecified; E78.5 Hyperlipidemia, unspecified; D64.9 Anemia, unspecified; I95.9 Hypotension, unspecified; E11.319 Type 2 diabetes mellitus with unspecified diabetic retinopathy without macular edema; Z88.5 Allergy status to narcotic agent; Z88.1 Allergy status to other antibiotic agents; Z88.8 Allergy status to other drugs, medicaments and biological substances; Z79.4 Long term (current) use of insulin; Z79.02 Long term (current) use of antithrombotics/antiplatelets; Z91.040 Latex allergy status; Z79.899 Other long term (current) drug therapy
CPT/HCPCS: 36415; 36569; 70450; 71045; 80048; 80053; 80076; 80143; 80179; 80307; 81001; 82077; 82947; 83605; 83735; 84145; 84439; 84443; 85025; 85610; 85730; 87077; 87086; 87088; 87186; 93005; 94760; 96361; 96365; 99285; J1610; J1644; J2185; J3370; J7030; J7040

== ENCOUNTER 2025-01-27 15:10 | Inpatient (IN) | payer OTHER ==
[2025-01-27] MEDS ORDERED: NA CHLORIDE 0.9% 1,000 ML ONE (15:57)
[2025-01-27 16:07] LABS: Absolute Basophils 0.1 K/uL (0-0.5); Absolute Eosinophils 0.2 K/uL (0-0.5); Absolute Lymphocytes (CBC) 0.8 K/uL (0.7-4.9); Absolute Monocytes 1.4 K/uL (0.1-1.3); Absolute Neutrophil 8.2 K/uL (1.8-8.0); Basophils % 0.9 % (0-1.3); Eosinophils % 1.8 % (0-4.4); Hematocrit 35.8 % (36.0-45.0); Hemoglobin 11.3 g/dL (12.0-15.0); Lymphocytes % 7.2 % (15.3-44.8); MCH 25.8 pg (27.0-35.0); MCHC 31.5 g/dL (32.0-36.0); MCV 81.9 fL (80-100); MPV 9.1 fL (7.6-11.3); Monocytes % 13.1 % (3.3-12.3); Nucleated Red Blood Cells % 0.1 % (0-0); Platelets 253 thou/uL (152-406); RBC Red Blood Cell Count 4.37 M/uL (3.86-4.86); Red Cell Distribution Width 17.7 % (12.1-15.2)
[2025-01-27 16:19] LABS: Albumin 2.6 g/dL (3.4-5.0); Albumin/Globulin Ratio 0.5 (1.1-1.8); Anion Gap 13.5 mEq/L (5.0-15.0); Bilirubin Total 0.5 mg/dL (0.2-1.0); Potassium 4.5 mEq/L (3.5-5.1); Protein, Total 7.6 g/dL (6.4-8.2)
[2025-01-27 16:23] LABS: Urine Bilirubin NEGATIVE (Negative); Urine Blood Negative (Negative); Urine Clarity Clear (Clear); Urine Color Colorless (Yellow); Urine Glucose 4+ (Over) (Negative); Urine Ketones 1+ (Negative); Urine Microscopic Reflex YN NO UMIC; Urine Nitrite NEGATIVE (Negative); Urine Protein NEGATIVE (Negative); Urine Urobilinogen Normal (Normal)
[2025-01-27] MEDS ORDERED: INSULIN REGULAR (HUMAN) 100 UNIT/ML ONE (17:24)
--- NOTE | 2025-01-27 18:15 | RAD REPORT ---
EXAMINATION: ONE VIEW CHEST XR CLINICAL INDICATION: COUGH TECHNIQUE: Frontal chest projection is submitted. Examination is limited by patient positioning and t echnique. COMPARISON: No prior exam. FINDINGS: The lungs are well inflated and clear. The heart is upper limit of normal in size. No displaced fract ures identified. IMPRESSION: No acute intrathoracic abnormalities.
--- NOTE | 2025-01-27 19:12 | EDPHYS ---
Physician Documentation [facility] Name: Norma Ruiz Age: 59 yrs Sex: Female : 1965 Arrival Date: 01/27/2025 Time: 15:10 Bed 24 Private MD: ED Physician Benitez Gardner HPI: 01/27 18:13 59-year-old female comes to the emergency department for evaluation of hallucinations jj9 and hyperglycemia. The patient is awake alert oriented appears in no distress and she answers question appropriately. Past medical history significant for JACLYN, type 2 diabetes retinopathy, blindness, major depressive disorder, vitamin D deficiency. She denies fever, chills, nausea, vomiting, chest pain or shortness of breath.. Historical: - Allergies: 15:22 Aleve; jb4 15:22 metronizadole; jb4 15:22 Morphine; jb4 15:22 Prednisone; jb4 15:22 CEPHALOSPORINS; jb4 15:22 Tuberculin PPD; jb4 15:22 Latex; jb4 15:22 Novocain; jb4 15:22 [place]ut; jb4 - PMHx: 15:22 Acute Kidney Failure; diabetic retinopathy; macular edema; Major Depressive Disorder; jb4 vitamin d defiency; diabetes mellitus; Hyperlipidemia; - Immunization history:: Adult Immunizations up to date. - Infectious Disease History:: Denies. - Social history:: Smoking status: Patient denies any tobacco usage or history of. ROS: 18:14 Constitutional: Negative for fever, chills, and weight loss, Eyes: Negative for injury, jj9 pain, redness, and discharge, ENT: Negative for injury, pain, and discharge, Neck: Negative for injury, pain, and swelling, Cardiovascular: Negative for chest pain, palpitations, and edema, Respiratory: Negative for shortness of breath, cough, wheezing, and pleuritic chest pain, Abdomen/GI: Negative for abdominal pain, nausea, vomiting, diarrhea, and constipation, Back: Negative for injury and pain, MS/Extremity: Negative for injury and deformity, Skin: Negative for injury, rash, and discoloration, Neuro: Negative for headache, weakness, numbness, tingling, and seizure, Psych: Negative for depression, anxiety, suicide ideation, homicidal ideation, and hallucinations, Allergy/Immunology: Negative for hives, rash, and allergies, Endocrine: Negative for neck swelling, polydipsia, polyuria, polyphagia, and marked weight changes, Hematologic/Lymphatic: Negative for swollen nodes, abnormal bleeding, and unusual bruising, Exam: 18:15 Constitutional: This is a well developed, well nourished patient who is awake, alert, jj9 and in no acute distress. Head/Face: Normocephalic, atraumatic. Eyes: Pupils equal round and reactive to light, extra-ocular motions intact. Lids and lashes normal. Conjunctiva and sclera are non-icteric and not injected. Cornea within normal limits. Periorbital areas with no swelling, redness, or edema. ENT: Nares patent. No nasal discharge, no septal abnormalities noted. Tympanic membranes are normal and external auditory canals are clear. Oropharynx with no redness, swelling, or masses, exudates, or evidence of obstruction, uvula midline. Mucous membranes moist. Neck: Trachea midline, no thyromegaly or masses palpated, and no cervical lymphadenopathy. Supple, full range of motion without nuchal rigidity, or vertebral point tenderness. No Meningismus. Chest/axilla: Normal chest wall appearance and motion. Nontender with no deformity. No lesions are appreciated. Cardiovascular: Regular rate and rhythm with a normal S1 and S2. No gallops, murmurs, or rubs. Normal PMI, no JVD. No pulse deficits. Respiratory: Lungs have equal breath sounds bilaterally, clear to auscultation and percussion. No rales, rhonchi or wheezes noted. No increased work of breathing, no retractions or nasal flaring. Abdomen/GI: Soft, non-tender, with normal bowel sounds. No distension or tympany. No guarding or rebound. No evidence of tenderness throughout. Back: No spinal tenderness. No costovertebral tenderness. Full range of motion. Skin: Warm, dry with normal turgor. Normal color with no rashes, no lesions, and no evidence of cellulitis. MS/ Extremity: Pulses equal, no cyanosis. Neurovascular intact. Full, normal range of motion. Neuro: Awake and alert, GCS 15, oriented to person, place, time, and situation. Cranial nerves II-XII grossly intact. Motor strength 5/5 in all extremities. Sensory grossly intact. Cerebellar exam normal. Normal gait. Psych: Awake, alert, with orientation to person, place and time. Behavior, mood, and affect are within normal limits. Vital Signs: 15:20 BP 118 / 61; Pulse 89; Resp 17; Temp 98.1(O); Pulse Ox 100% on R/A; jb4 17:30 BP 115 / 91; Pulse 84; Resp 17; Pulse Ox 100% on R/A; jb4 18:30 BP 152 / 102; Pulse 82; Resp 16; Pulse Ox 99% on R/A; jb4 20:00 BP 137 / 53; Pulse 84; Resp 18; Pulse Ox 100% on R/A; jb4 21:17 BP 103 / 52; Pulse 89; Resp 16; Pulse Ox 100% on R/A; jb4 MDM: 15:16 Medical Screening Exam initiated kb 15:17 Medical Screening Exam initiated jj9 19:54 Differential diagnosis: DKA, hyperglycemia, Infection, electrolyte and maladies, CKD, jj9 etc. Consideration of Admission/Observation Patient was admitted/placed on observation. Management of patient was discussed with the following: Hospitalist: Dr. Jose. ED course: Labs and imaging reviewed, negative CT scan of the head, no evidence of intrathoracic abnormality on chest x-ray. Glucose seems to be improving. Patient at baseline has CKD. She is awake alert and responsive. Sporadically she has what appears to be visual hallucinations. The patient is afebrile and otherwise hemodynamically stable. I discussed the case with Dr. Jose hospitalist for admission and further evaluation. I suspect metabolic encephalopathy probably related to the hyperglycemia.. 01/27 15:19 Order name: CBC with Diff; Complete Time: 16: [facility] 01/27 15:19 Order name: CMP; Complete Time: 16: [facility] 01/27 15:19 Order name: Lipase; Complete Time: 16: [facility] 01/27 15:19 Order name: Urinalysis w/ reflexes; Complete Time: 16: [facility] 01/27 15:19 Order name: Lactate w/ 2H reflex if indic.; Complete Time: 16: [facility] 01/27 15:49 Order name: Glucose, Ancillary Testing; Complete Time: 16:29 [facility] 01/27 17:15 Order name: Glucose, Ancillary Testing; Complete Time: 17:27 [facility] 01/27 18:57 Order name: Glucose, Ancillary Testing; Complete Time: 19:47 EDMS 01/27 19:09 Order name: Urine Drug Screen [facility] 01/27 19:43 Order name: Urinalysis w/ reflexes [facility] 01/27 19:43 Order name: CBC with Automated Diff EDMS 01/27 19:43 Order name: CBC with Automated Diff EDMS 01/27 19:43 Order name: Comprehensive Metabolic Panel [facility] 01/27 19:43 Order name: Comprehensive Metabolic Panel [facility] 01/27 17:37 Order name: Chest Single View XRAY; Complete Time: 18:33 jb4 01/27 19:00 Order name: CT Head Brain wo Cont; Complete Time: 19:47 9 01/27 15:19 Order name: EKG; Complete Time: 15:20 9 01/27 15:19 Order name: IV Saline Lock; Complete Time: 16:15 9 01/27 15:19 Order name: Labs collected and sent; Complete Time: 16:15 9 01/27 15:19 Order name: Accucheck; Complete Time: 16:15 9 01/27 15:19 Order name: Cardiac monitoring; Complete Time: 16:15 9 01/27 15:19 Order name: IV Saline Lock - Large Bore; Complete Time: 16:15 Administered Medications: 16:22 Drug: NS 0.9% IV 1000 ml IV at 1 bolus Per protocol; to be given as a bolus over 60 jb4 minutes Route: IV; Rate: 1 bolus; Site: left antecubital; 18:00 Follow up: Response: No adverse reaction; IV Status: Completed infusion; IV Intake: jb4 1000ml 17:28 Drug: Insulin Regular Human IVP 7 units IVP once {Co-Signature: jb4 (Andreas Christopher RN).} Route: IVP; Site: left antecubital; 18:30 Follow up: Response: No adverse reaction; Marked relief of symptoms; Blood sugar is jb4 lowered Disposition Summary: 01/27/25 19:11 Hospitalization Ordered Notes: Hospitalization Status: Observation jj9 Provider: Donny Josej9 Location: Telemetry/MedSur (observation) j9 Condition: Stable j9 Problem: new jj9 Symptoms: have improved jj9 Bed/Room Type: Standard [facility] Room Assignment: 409(01/27/25 19:52) Diagnosis - Type 2 diabetes mellitus with hyperglycemia Forms: - Medication Reconciliation Form - SBAR form j9 - Leadership Thank You Letter jj9 Signatures: Dispatcher [employer] [facility] Sigrid Friedman, WATCH REPAIRER APPRENTICE-C IGNACIO-Sheila Gutierrez RN RN kl Carlota Trimble RN RN Andreas Christopher RN RN jb4 Anna Garcia [facility] Benitez Gardner MD MD jjAndreas Cho RN jb4 Corrections: (The following items were deleted from the chart) 17:37 17:37 Chest Single View+RAD.RAD.BRZ ordered. [facility] 19:43 19:11 j9 [facility] 19:52 19:[address] [place] [address]
--- NOTE | 2025-01-27 19:12 | ER ---
Nurse's Notes [facility] Name: Norma Ruiz Age: 59 yrs Sex: Female : 1965 Arrival Date: 01/27/2025 Time: 15:10 Bed 24 Private MD: Diagnosis: Type 2 diabetes mellitus with hyperglycemia Presentation: 01/27 15:20 Chief complaint: EMS states: [facility] staff called due to pt hallucinating. Pt jbKamila was recently released from the hospital due to UTI. Vital signs were stable, her BGL read high. Coronavirus screen: At this time, the client does not indicate any symptoms associated with coronavirus-19. Ebola Screen: No symptoms or risks identified at this time. Initial Sepsis Screen: Does the patient meet any 2 criteria? No. Patient's initial sepsis screen is negative. Does the patient have a suspected source of infection? No. Patient's initial sepsis screen is negative. Risk Assessment: Do you want to hurt yourself or someone else? Patient reports no desire to harm self or others. Onset of symptoms was January 27, 2025. Transition of care: patient was not received from another setting of care. 15:20 Method Of Arrival: EMS: [facility] jb4 15:20 Acuity: LEWIS 2 jb4 Historical: - Allergies: 15:22 Aleve; jb4 15:22 metronizadole; jb4 15:22 Morphine; jb4 15:22 Prednisone; jb4 15:22 CEPHALOSPORINS; jb4 15:22 Tuberculin PPD; jb4 15:22 Latex; jb4 15:22 Novocain; jb4 15:22 Coconut; jb4 - PMHx: 15:22 Acute Kidney Failure; diabetic retinopathy; macular edema; Major Depressive Disorder; jb4 vitamin d defiency; diabetes mellitus; Hyperlipidemia; - Immunization history:: Adult Immunizations up to date. - Infectious Disease History:: Denies. - Social history:: Smoking status: Patient denies any tobacco usage or history of. Screenin:20 [facility] ED Fall Risk Assessment (Adult) History of falling in the last 3 months, jb4 including since admission Yes- single mechanical fall (1 pt) Confusion or Disorientation No (0 pts) Intoxicated or Sedated No (0 pts) Impaired Gait Yes (1 pt) Mobility Assist Device Used No (0 pt) Altered Elimination No (0 pt) Score/Fall Risk Level 0 - 2 = Low Risk Oriented to surroundings, Maintained a safe environment. Abuse screen: Denies threats or abuse. Nutritional screening: No deficits noted. Tuberculosis screening: No symptoms or risk factors identified. Assessment: 15:30 General: Appears in no apparent distress. comfortable, Behavior is calm, cooperative, jb4 appropriate for age. Pain: Denies pain. Neuro: Level of Consciousness is awake, alert, obeys commands, Oriented to person, place, time, situation, Reports visual hallucinations . Cardiovascular: Patient's skin is warm and dry. Respiratory: Airway is patent Respiratory effort is even, unlabored, Respiratory pattern is regular, symmetrical. Derm: Skin is dry, Skin is feet appear darkened red and swollen. otherwise skin is normal in color. Skin temperature is warm Decubitus located on right heel(s) approximately 1.5 cm to 2.5 cm is unstageable. Musculoskeletal: Circulation, motion, and sensation intact. 16:30 Reassessment: Patient appears in no apparent distress at this time. Patient and/or jb4 family updated on plan of care and expected duration. Pain level reassessed. Patient is alert, oriented x 3, equal unlabored respirations, skin warm/dry/pink. 17:30 Reassessment: Patient appears in no apparent distress at this time. Patient and/or jb4 family updated on plan of care and expected duration. Pain level reassessed. Patient is alert, oriented x 3, equal unlabored respirations, skin warm/dry/pink. 18:45 Reassessment: ER physician notified of BGL, no new orders at this time. jb4 18:47 Reassessment: Patient appears in no apparent distress at this time. Patient and/or jb4 family updated on plan of care and expected duration. Pain level reassessed. Patient is alert, oriented x 3, equal unlabored respirations, skin warm/dry/pink. Pt continues to have hallucinations. 20:00 Reassessment: Patient appears in no apparent distress at this time. Patient and/or jb4 family updated on plan of care and expected duration. Pain level reassessed. Patient is alert, oriented x 3, equal unlabored respirations, skin warm/dry/pink. Pt's brief changed, pt cleaned. 21:17 Reassessment: Patient appears in no apparent distress at this time. Patient and/or jb4 family updated on plan of care and expected duration. Pain level reassessed. Patient is alert, oriented x 3, equal unlabored respirations, skin warm/dry/pink. Vital Signs: 15:20 BP 118 / 61; Pulse 89; Resp 17; Temp 98.1(O); Pulse Ox 100% on R/A; jb4 17:30 BP 115 / 91; Pulse 84; Resp 17; Pulse Ox 100% on R/A; jb4 18:30 BP 152 / 102; Pulse 82; Resp 16; Pulse Ox 99% on R/A; jb4 20:00 BP 137 / 53; Pulse 84; Resp 18; Pulse Ox 100% on R/A; jb4 21:17 BP 103 / 52; Pulse 89; Resp 16; Pulse Ox 100% on R/A; jb4 ED Course: 15:15 Patient arrived in ED. jb4 15:16 [facility] kb 15:16 Ivan Alatorre MD is Attending Physician. kb 15:17 Benitez Gardner MD is Attending Physician. jj9 15:20 Andreas Christopher, RN is Primary Nurse. jb4 15:20 Patient has correct armband on for positive identification. Placed in gown. Bed in low jb4 position. Call light in reach. Side rails up X 1. Provided Education on: plan of care. 15:22 Triage completed. jb4 15:22 Arm band placed on right wrist. jb4 16:15 Urinalysis w/ reflexes Sent. jb4 16:22 Notified ED physician of a critical lab result(s). glucose 578. kc6 17:25 Accessed peripheral vein via ultrasound, utilizing dynamic ultrasound technique using ss ,sterile technique, per hospital protocol. Clean \T\ dry. Dressing intact. Good blood return. Flushes easily. 20 gauge L AC. 18:13 Chest Single View XRAY In Process Unspecified. EDMS 19:10 Donny Jose MD is Hospitalizing Provider. jj9 19:28 CT Head Brain wo Cont In Process Unspecified. EDMS 21:18 No provider procedures requiring assistance completed. Patient admitted, IV remains in jb4 place. Administered Medications: 16:22 Drug: NS 0.9% IV 1000 ml IV at 1 bolus Per protocol; to be given as a bolus over 60 jb4 minutes Route: IV; Rate: 1 bolus; Site: left antecubital; 18:00 Follow up: Response: No adverse reaction; IV Status: Completed infusion; IV Intake: jb4 1000ml 17:28 Drug: Insulin Regular Human IVP 7 units IVP once {Co-Signature: jb4 (Andreas Christopher ss RN).} Route: IVP; Site: left antecubital; 18:30 Follow up: Response: No adverse reaction; Marked relief of symptoms; Blood sugar is jb4 lowered Medication: 21:17 VIS not applicable for this client. jb4 Intake: 18:00 IV: 1000ml; Total: 1000ml. jb4 Outcome: 19:11 Decision to Hospitalize by Provider. jj9 21:18 Admitted to Tele accompanied by nurse, room 409, with chart, jb4 21:18 Condition: stable 21:18 Discharge instructions given to patient, Instructed on the need for admit, Demonstrated understanding of instructions, 21:21 Patient left the ED. jb4 Signatures: Dispatcher [employer] EDSigrid Chairez, ALENA MOEP-CkCarlota Zuniga RN RN ss Andreas Christopher, RN RN jb4 Mirna Marino RN RN [email or web address] Benitez aGrdner MD MD jj9 Andreas Christopher RN jb4 Corrections: (The following items were deleted from the chart) 21:17 15:30 Neuro: Level of Consciousness is awake, alert, obeys commands, Oriented to jb4 person, place, time, situation, jb4 21:17 15:30 Respiratory: Airway is patent Respiratory effort is even, unlabored, Respiratory jb4 pattern is regular, symmetrical, jb4 21:17 18:47 Reassessment: Patient appears in no apparent distress at this time. Patient jb4 and/or family updated on plan of care and expected duration. Pain level reassessed. Patient is alert, oriented x 3, equal unlabored respirations, skin warm/dry/pink. jb4 21:18 15:30 Derm: Skin is intact, Skin is dry, Skin is feet appear darkened red and swollen. jb4 otherwise skin is normal in color. Skin temperature is warm jb4
--- NOTE | 2025-01-27 19:32 | RAD REPORT ---
EXAM: CT brain without contrast HISTORY: CONFUSED COMPARISON: None TECHNIQUE: Multiple contiguous axial images were obtained and a CT of the brain without contrast. Sag ittal and coronal reformats were performed. One or more of the following dose reduction techniques were used: Automated exposure control, adjust ment of the mA and/or kV according to patient size, and/or iterative reconstruction. FINDINGS: No evidence of hydrocephalus, intracranial hemorrhage, or extra-axial fluid collection. Mild brain atrophy with mild periventricular and deep white matter chronic microvascular ischemic ch anges present. No evidence of midline shift or areas of brain edema. The calvarium is intact. The visualized paranasal sinuses and mastoid air cells are essentially clear . Hyperdense right orbit. IMPRESSION: No evidence of acute intracranial abnormality.
--- NOTE | 2025-01-27 19:37 | P.HP ---
Certification for Inpatient Patient admitted to: Inpatient With expected LOS: >2 Midnights Practitioner: I am a practitioner with admitting privileges, knowledge of patient current condition, hospital course, and medical plan of care. Services: Services provided to patient in accordance with Admission requirements found in Title 42 Section 412.3 of the Code of Federal Regulations Patient History Date of Service: 01/27/25 Reason for admission: AMS History of Present Illness: 59-year-old female with past medical history of CKD stage II diabetes, retinopathy and history of macular edema, history of blindness, major depressive disorder, vitamin D deficiency, hyperlipidemia, who was recently been admitted to the hospital and was discharged this morning came back to ER with altered mental status. Patient is a poor historian hence most of the history is obtained from the chart review and also talking to the ER physician. Patient is alert and awake and oriented x 2 but has delusions of snakes running around her. Denies any headache. Denies any fall. No fever or chills. No nausea vomiting or diarrhea. Patient was assessed in the ER and is admitted for further management. Allergies Cephalosporins Allergy (Unknown, Verified 01/25/25 03:31) Rash latex Allergy (Unknown, Verified 01/25/25 03:31) Rash metronidazole Allergy (Unknown, Verified 01/25/25 03:31) Rash morphine Allergy (Unknown, Verified 01/25/25 03:31) Rash naproxen [From Aleve] Allergy (Unknown, Verified 01/25/25 03:31) Rash prednisone Allergy (Unknown, Verified 01/25/25 03:31) Rash procaine [From Novocain] Allergy (Unknown, Verified 01/25/25 03:31) Rash tuberculin,PPD,multi-puncture Allergy (Unknown, Verified 01/25/25 03:31) Rash Home medications list reviewed: Yes Home Medications: Acetaminophen 325 mg PO Q4HP PRN 01/27/25 Acetaminophen 650 mg PO Q4HP PRN 01/27/25 Aspirin 81 mg PO DAILY 01/27/25 Bimatoprost [Lumigan] 1 drop OP BEDTIME 01/27/25 Brimonidine Tartrate 1 drop OP BID 01/27/25 Brinzolamide [Azopt] 1 drop OP TID 01/27/25 Carboxymethylcellulose Sodium [Artificial Tears] 2 drop OP BID 01/27/25 Cetirizine HCl 10 mg PO DAILY 01/27/25 Ciprofloxacin HCl [Cipro] 500 mg PO BID 01/27/25 Clopidogrel Bisulfate [Plavix] 75 mg PO DAILY 01/27/25 Dextrose Oral [Glucose Oral 15 gm Tube] 32 ml PO Q4HP PRN 01/27/25 Fluvoxamine Maleate 100 mg PO BEDTIME 01/27/25 Guaifenesin/Dextromethorphan [Diabetic Tussin Dm Liquid] 10 ml PO Q4HP PRN 01/27/25 Insulin Aspart [Novolog Flexpen] 4 unit SQ AC 01/27/25 Insulin Glargine,Hum.rec.anlog [Basaglar Kwikpen U-100] 25 unit SQ DAILY 01/27/25 Metoprolol Succinate 100 mg PO DAILY 01/27/25 Montelukast [Singulair] 10 mg PO BEDTIME 01/27/25 Netarsudil Mesylate [Rhopressa] 2.5 ml OP BEDTIME 01/27/25 Paroxetine HCl [Paxil] 60 mg PO BEDTIME 01/27/25 Potassium Chloride 20 meq PO DAILY 01/27/25 Risperidone [Risperdal] 0.25 mg PO BEDTIME 01/27/25 Rosuvastatin [Crestor] 10 mg PO BEDTIME 01/27/25 Timolol Maleate [Timoptic] 1 drop OP BID 01/27/25 Torsemide [Soaanz] 40 mg PO DAILY 01/27/25 glucagon HCL [Glucagon HCl] 1 mg SQ PRN PRN 01/27/25 - Past Medical/Surgical History Past Medical History: Reviewed- Non-Contributory Past Surgical History: Reviewed- Non-Contributory - Family History Family History: Reviewed- Non-Contributory - Social History Smoking Status: Never smoker Review of Systems is unable to be obtained Physical Examination - Vital Signs Temperature: 98.1 F Blood Pressure: 118/61 Pulse: 88 Respirations: 19 Pulse Ox (%): 94 - Physical Exam General: Alert, Oriented x2, Mild distress, Confused, Delirious HEENT: Atraumatic, Normocephalic Neck: Supple, No Thyromegaly Respiratory: Clear to auscultation bilaterally, Normal air movement Cardiovascular: No edema, Normal S1 S2 Capillary refill: <2 Seconds Gastrointestinal: Soft and benign, W/out hepatosplenomegaly Musculoskeletal: No clubbing, No swelling Integumentary: No rashes, No tenderness/swelling Neurological: Other (Alert,awake, Confused , Delusions ) Lymphatics: No axilla or inguinal lymphadenopathy - Studies Laboratory Data (last 24 hrs) 01/27/25 01/27/25 15:52 15:52 WBC 10.70 Hgb 11.3 L Hct 35.8 L Plt Count 253 Sodium 134 L Potassium 4.5 BUN 28 H Creatinine 2.02 H Glucose 578 H* Total Bilirubin 0.5 AST 35 ALT 65 H Alkaline Phosphatase 152 H Lipase 15 Assessment and Plan - Problems (Diagnosis) (1) Acute metabolic encephalopathy Current Visit: Yes Status: Acute Plan: Acute metabolic encephalopathy Monitor neuro vital signs closely CT head was negative for any acute changes Will get a urine drug screen Hyperglycemia with uncontrolled diabetes Insulin sliding scale Accu-Chek before every meal and at bedtime Monitor closely Acute kidney injury on CKD stage II Dehydration Monitor renal parameters Electrolytes monitor and replace accordingly Started on IV hydration Hyponatremia Electrolytes monitor IV hydration Recent history of UTI ESBL E. coli Will start on meropenem Monitor closely under telemetry Acute delusional disorder Patient has delusions of snakes around her History of major depressive disorders Patient may need psych evaluation Will start on Seroquel GI/DVT prophylaxis Advanced directive full code Discharge Plan: Psychiatry Plan to discharge in: 48 Hours - Advance Directives Does patient have a Living Will: No Does patient have a Durable POA for Healthcare: No Time Spent Managing Pts Care (In Minutes): 54
[2025-01-27] MEDS ORDERED: ONDANSETRON 4 MG/2 ML VIAL IV PRN (19:38)
[2025-01-27 22:34] VITALS: BMI 40.5
[2025-01-27] MEDS ORDERED: D10W 125 ML IV PRN (22:40)
[2025-01-27] MEDS ORDERED: GLUCAGON 1 MG/VIAL IM PRN (22:40)
[2025-01-27] MEDS: INSULIN REGULAR (HUMAN) 100 UNIT/ML ONE (22:56)
[2025-01-27] MEDS: QUETIAPINE 25 MG TAB ONE (23:00)
[2025-01-27] MEDS: Meropenem 500 MG in NA CHLORIDE 0.9% 100 ML IV SCH (23:13)
[2025-01-27] MEDS: INSULIN REGULAR (HUMAN) 100 UNIT/ML SQ SCH (23:13)
[2025-01-27] MEDS: QUETIAPINE 25 MG TAB PO SCH (23:13)
[2025-01-27] MEDS: LORazepam 2 MG/ML VIAL IV PRN (23:13)
[2025-01-27] MEDS: NA CHLORIDE 0.9% 1,000 ML IV SCH (23:13)
[2025-01-27 23:41] LABS: Barbiturates NEGATIVE (NEGATIVE); Benzodiazepines NEGATIVE (NEGATIVE); Cocaine NEGATIVE (NEGATIVE); METHAMPHETAM NEGATIVE (NEGATIVE); Methadone NEGATIVE (NEGATIVE); Opiates NEGATIVE (NEGATIVE); Phencyclidine NEGATIVE (NEGATIVE); THC Cannibis NEGATIVE (NEGATIVE)
[2025-01-28 07:09] LABS: Absolute Eosinophils 0.3 K/uL (0-0.5); Absolute Lymphocytes (CBC) 1.1 K/uL (0.7-4.9); Absolute Monocytes 0.9 K/uL (0.1-1.3); Absolute Neutrophil 4.8 K/uL (1.8-8.0); Basophils % 0.5 % (0-1.3); Eosinophils % 4.4 % (0-4.4); Hematocrit 34.8 % (36.0-45.0); Hemoglobin 10.9 g/dL (12.0-15.0); Lymphocytes % 15.4 % (15.3-44.8); MCH 25.7 pg (27.0-35.0); MCHC 31.3 g/dL (32.0-36.0); MPV 8.6 fL (7.6-11.3); Monocytes % 12.6 % (3.3-12.3); Neutrophils % 67.1 % (41.7-73.7); Platelets 241 thou/uL (152-406); RBC Red Blood Cell Count 4.24 M/uL (3.86-4.86); Red Cell Distribution Width 17.5 % (12.1-15.2)
[2025-01-28 07:25] LABS: Albumin 2.5 g/dL (3.4-5.0); Albumin/Globulin Ratio 0.6 (1.1-1.8); Anion Gap 10.2 mEq/L (5.0-15.0); Bilirubin Total 0.4 mg/dL (0.2-1.0); Globulin 4.2 g/dL (2.3-3.5); Potassium 4.2 mEq/L (3.5-5.1); Protein, Total 6.7 g/dL (6.4-8.2)
[2025-01-28] MEDS: ENOXAPARIN 30 MG/0.3 ML SQ SCH (08:18)
--- NOTE | 2025-01-28 12:55 | P.PN ---
Date of Service: 01/28/25 Subjective: Seen resting comfortably in bed she states she is in the hospital. Unable to elicit any other meaningful information at this time. Will try to touch base with family members. Vital stable overnight. There is nobody else at bedside. When I ask her questions she mumbles under her breath. Review of Systems is unable to be obtained Physical Examination - Vital Signs Temperature: 98.1 F Blood Pressure: 118/61 Pulse: 88 Respirations: 19 Pulse Ox (%): 94 - Physical Exam General: Alert, Oriented x2, Mild distress, Confused, Delirious HEENT: Atraumatic, Normocephalic Neck: Supple, No Thyromegaly Respiratory: Clear to auscultation bilaterally, Normal air movement Cardiovascular: No edema, Normal S1 S2 Capillary refill: <2 Seconds Gastrointestinal: Soft and benign, W/out hepatosplenomegaly Musculoskeletal: No clubbing, No swelling Integumentary: No rashes, No tenderness/swelling Neurological: Other (Alert,awake, Confused , Delusions ) Lymphatics: No axilla or inguinal lymphadenopathy - Studies Laboratory Data (last 24 hrs) 01/27/25 01/27/25 15:52 15:52 WBC 10.70 Hgb 11.3 L Hct 35.8 L Plt Count 253 Sodium 134 L Potassium 4.5 BUN 28 H Creatinine 2.02 H Glucose 578 H* Total Bilirubin 0.5 AST 35 ALT 65 H Alkaline Phosphatase 152 H Lipase 15 Assessment and Plan - Problems (Diagnosis) (1) Acute metabolic encephalopathy Current Visit: Yes Status: Acute Plan: Acute metabolic encephalopathy / Monitor neuro vital signs closely CT head was negative for any acute changes Urine drug screen within normal limits Hyperglycemia with uncontrolled diabetes Improved Continue sliding scale insulin and add Lantus 10 units nightly Accu-Chek before every meal and at bedtime Monitor closely Acute kidney injury on CKD stage II Dehydration Improving Monitor renal parameters Electrolytes monitor and replace accordingly Started on IV hydration Hyponatremia Resolved Recent history of UTI ESBL E. coli Will start on meropenem Monitor closely under telemetry Acute delusional disorder Patient has delusions of snakes around her History of major depressive disorders Patient may need psych evaluation Will start on Seroquel GI/DVT prophylaxis Advanced directive full code Discharge Plan: Psychiatry Plan to discharge in: 48 Hours - Advance Directives Does patient have a Living Will: No Does patient have a Durable POA for Healthcare: No Time Spent Managing Pts Care (In Minutes): 54
[2025-01-28] MEDS: Meropenem 1,000 MG in NA CHLORIDE 0.9% 100 ML IV SCH (20:50)
[2025-01-28] MEDS: INSULIN GLARGINE 100 UNIT/ML SQ SCH (21:18)
--- NOTE | 2025-01-29 15:02 | P.PN ---
Date of Service: 01/29/25 Subjective: No new event. Spoke with her brother Andreas on the phone. States she is usually socially inept. He states the alf claims that she has been talking to herself more often. He says she is very smart and has read thousands of books. He denies any depression, anxiety, history of schizoph jacque, or autism diagnosis in the past. Vitals remained stable blood and lab work has been unremarkable. History from her has been difficult to obtain due to her being socially withdrawn. Review of Systems 10 point review of systems negative Physical Examination - Vital Signs Temperature: 98.1 F Blood Pressure: 118/61 Pulse: 88 Respirations: 19 Pulse Ox (%): 94 - Physical Exam General: Alert, Oriented x2, Mild distress HEENT: Atraumatic, Normocephalic Neck: Supple, No Thyromegaly Respiratory: Clear to auscultation bilaterally, Normal air movement Cardiovascular: No edema, Normal S1 S2 Capillary refill: <2 Seconds Gastrointestinal: Soft and benign, W/out hepatosplenomegaly Musculoskeletal: No clubbing, No swelling Integumentary: No rashes, No tenderness/swelling Neurological: Other (Alert,awake, Confused , Delusions ) Lymphatics: No axilla or inguinal lymphadenopathy - Studies Laboratory Data (last 24 hrs) 01/27/25 01/27/25 15:52 15:52 WBC 10.70 Hgb 11.3 L Hct 35.8 L Plt Count 253 Sodium 134 L Potassium 4.5 BUN 28 H Creatinine 2.02 H Glucose 578 H* Total Bilirubin 0.5 AST 35 ALT 65 H Alkaline Phosphatase 152 H Lipase 15 Assessment and Plan - Problems (Diagnosis) (1) Acute metabolic encephalopathy Current Visit: Yes Status: Acute Plan: Acute metabolic encephalopathy / Monitor neuro vital signs closely CT head was negative for any acute changes Urine drug screen within normal limits Hyperglycemia with uncontrolled diabetes Improved Currently on aggressive sliding scale insulin and continue Lantus 10 units nightly Accu-Chek before every meal and at bedtime Acute kidney injury on CKD stage II Dehydration Improving Started on IV hydration Hyponatremia Resolved Recent history of UTI ESBL E. coli Will start on meropenem Procalcitonin pending Acute delusional disorder Patient has delusions of snakes around her History of major depressive disorders Patient may need psych evaluation Will start on Seroquel GI/DVT prophylaxis Advanced directive full code Discharge Plan: Psychiatry Plan to discharge in: 48 Hours - Advance Directives Does patient have a Living Will: No Does patient have a Durable POA for Healthcare: No Time Spent Managing Pts Care (In Minutes): 54
[2025-01-29] MEDS: GUAIFENESIN/DM 5 ML UCUP PO PRN (21:55)
[2025-01-30 06:28] LABS: Anion Gap 7.9 mEq/L (5.0-15.0); Potassium 3.9 mEq/L (3.5-5.1)
[2025-01-30 06:36] LABS: Absolute Basophils 0.1 K/uL (0-0.5); Absolute Lymphocytes (CBC) 0.9 K/uL (0.7-4.9); Absolute Monocytes 0.7 K/uL (0.1-1.3); Absolute Neutrophil 3.2 K/uL (1.8-8.0); Eosinophils % 16.7 % (0-4.4); Hematocrit 32.2 % (36.0-45.0); Hemoglobin 10.4 g/dL (12.0-15.0); MCH 26.4 pg (27.0-35.0); MCHC 32.4 g/dL (32.0-36.0); MCV 81.4 fL (80-100); MPV 9.1 fL (7.6-11.3); Monocytes % 12.2 % (3.3-12.3); Neutrophils % 54.1 % (41.7-73.7); Nucleated Red Blood Cells % 0.1 % (0-0); Platelets 209 thou/uL (152-406); RBC Red Blood Cell Count 3.96 M/uL (3.86-4.86); Red Cell Distribution Width 17.6 % (12.1-15.2)
[2025-01-30] MEDS: POTASSIUM 25 MEQ EFFERV TAB PO ONE (08:44)
[2025-01-30] MEDS: Mupirocin NASAL 2 APPL/1 GM TUBE NAS SCH (08:45)
--- NOTE | 2025-01-30 09:48 | P.PN ---
Subjective Date of Service: 01/30/25 Chief Complaint: ESBL infection Denies any complaints and long-term resident recently diagnosed with an ESBL infection and is fairly impaired any complaint Review of Systems Unremarkable General: Weakness Physical Examination - Vital Signs Temperature: 97.4 F Blood Pressure: 148/62 Pulse: 74 Respirations: 18 Pulse Ox (%): 97 - Physical Exam General: Alert, Oriented x3, Cachectic Neck: No Thyromegaly Cardiovascular: No edema, Regular rate/rhythm Assessment And Plan - Current Problems (Diagnosis) (1) ESBL (extended spectrum beta-lactamase) producing bacteria infection Current Visit: Yes Status: Acute Plan: Is 59 years of age admitted with metabolic encephalopathy patient has ESBL infection will need meropenem for 7 days PICC line renal function is improving normal white count vital signs normal is back to his long-term with a PICC line and meropenem Discharge Plan: [facility] Plan to discharge in: 24 Hours
[2025-01-30 10:23] LABS: Blood Morphology Comment NOT SEEN (NOT SEEN); Platelet Estimate ADEQ; Platelets Clumped NOTED; White Blood Cell Scan OK (OK)
--- NOTE | 2025-01-30 14:51 | EKG ---
Test Date: 2025-01-27 Test Time: 16:21:14 Aerodynamicist: JONELLE MEASUREMENT RESULTS: Intervals: Rate: 84 OK: 140 QRSD: 70 QT: 410 QTc: 484 [place]: P: 51 OK: 140 QRS: 40 T: 76 INTERPRETIVE STATEMENTS: Normal sinus rhythm Low voltage QRS Possible Anterolateral infarct, age undetermined Abnormal ECG Compared to ECG 01/24/2025 20:24:44 Low QRS voltage now present Right-axis deviation no longer present Myocardial infarct finding still present Electronically Signed On 01-30-25 14:43:35 CDT by Marck Mcduffie
--- NOTE | 2025-01-30 16:08 | RAD REPORT ---
EXAMINATION: ONE VIEW CHEST XR CLINICAL INDICATION: Female, 59 years old.,PICC line placement TECHNIQUE: Frontal chest projection is submitted. Examination is limited by patient positioning and t echnique. COMPARISON: 1125 FINDINGS: The lungs are well inflated and clear of focal opacities. Central interstitial prominence progressive since the prior exam. Left arm PICC with catheter tip at the level of the distal SVC.. No pneumothorax or sizable effusion. The heart is normal in size. Mediastinal contours are unremarkable. IMPRESSION: Satisfactory left arm PICC placement. Progressive central interstitial prominence, suggesting central congestion/CHF.
[2025-01-31] MEDS: HYDRALAZINE HCL 20 MG/ML VIAL IV PRN (05:35)
[2025-01-31 06:44] LABS: Anion Gap 9.1 mEq/L (5.0-15.0); Magnesium 2.1 mg/dL (1.6-2.4); Potassium 4.1 mEq/L (3.5-5.1)
[2025-01-31] MEDS: ENOXAPARIN 40 MG/0.4 ML SQ SCH (09:22)
[2025-01-31] MEDS: ACETAMINOPHEN 325 MG TABLET PO PRN (09:23)
--- NOTE | 2025-01-31 10:48 | P.PN ---
Subjective Date of Service: 01/31/25 Chief Complaint: ESBL infection/cough chest congestion Patient has been complaining of cough and chest congestion apparently has a history of asthma was not using any bronchodilators also complained of right upper chest pain she is new Review of Systems General: Weakness Respiratory: Cough, Shortness of Breath Physical Examination - Vital Signs Temperature: 97.7 F Blood Pressure: 132/61 Pulse: 94 Respirations: 19 Pulse Ox (%): 97 - Physical Exam General: Alert, Oriented x3 Respiratory: Expiratory wheezes Cardiovascular: No edema, Regular rate/rhythm Assessment And Plan - Current Problems (Diagnosis) (1) ESBL (extended spectrum beta-lactamase) producing bacteria infection Current Visit: Yes Status: Acute Plan: Patient has an ES BL infection need to be set up with home antibiotics stable for discharge back to the alf antibiotics set up (2) Asthma Current Visit: Yes Status: Acute Plan: Patient has a history of asthma used to use inhalers before I have resumed her nebulizers probably benefit from the use of Advair at home labs chemistries reviewed mildly anemic renal function is improving Qualifiers: Asthma persistence: intermittent
[2025-01-31] MEDS: ARFORMOTEROL TARTRATE 15 MCG/2 ML VIAL.NEB NEB SCH (11:45)
[2025-01-31] MEDS: BUDESONIDE 0.5 MG/2 ML NEB NEB SCH (11:45)
[2025-01-31] MEDS: Meropenem 1,000 MG in NA CHLORIDE 0.9% 100 ML IV SCH (17:00)
--- NOTE | 2025-02-01 06:47 | P.PN ---
Subjective Date of Service: 02/01/25 Chief Complaint: ESBL infection/cough chest congestion Review of Systems 10-point ROS is otherwise unremarkable Physical Examination - Vital Signs Temperature: 98.7 F Blood Pressure: 119/82 Pulse: 104 Respirations: 16 Pulse Ox (%): 96 - Physical Exam General: Alert, In no apparent distress HEENT: Atraumatic, Normocephalic Neck: Supple Respiratory: Clear to auscultation bilaterally, Normal air movement Cardiovascular: Regular rate/rhythm, Normal S1 S2 Capillary refill: <2 Seconds Gastrointestinal: Soft and benign, Non-distended Musculoskeletal: No clubbing Assessment And Plan - Current Problems (Diagnosis) (1) Acute metabolic encephalopathy Current Visit: Yes Status: Acute Plan: Acute metabolic encephalopathy Monitor neuro vital signs closely CT head was negative for any acute changes Will get a urine drug screen Hyperglycemia with uncontrolled diabetes Insulin sliding scale Accu-Chek before every meal and at bedtime Monitor closely Acute kidney injury on CKD stage II Dehydration Monitor renal parameters Electrolytes monitor and replace accordingly Started on IV hydration Hyponatremia Electrolytes monitor IV hydration Recent history of UTI ESBL E. coli Will start on meropenem Monitor closely under telemetry Acute delusional disorder Patient has delusions of snakes around her History of major depressive disorders Patient may need psych evaluation Will start on Seroquel GI/DVT prophylaxis Advanced directive full code 02/01/2025 Continue antibiotics Appreciate help from consultants Case management consulted Need to continue IV antibiotic at the long term Awaiting placement Time Spent Managing PTS Care (In Minutes): 48
[2025-02-01] MEDS: BUDESONIDE 0.5 MG/2 ML NEB ONE (20:02)
[2025-02-01] MEDS: ARFORMOTEROL TARTRATE 15 MCG/2 ML VIAL.NEB ONE (20:02)
[2025-02-01 22:51] VITALS: O2SAT 100
--- NOTE | 2025-02-02 00:32 | P.PN ---
Date of Service: 02/02/25 Subjective Date of Service: 02/01/25 Chief Complaint: ESBL infection/cough chest congestion Review of Systems 10-point ROS is otherwise unremarkable Physical Examination - Vital Signs reviewed - Physical Exam General: Alert, In no apparent distress Respiratory: Clear to auscultation bilaterally, Normal air movement Cardiovascular: Regular rate/rhythm, Normal S1 S2 Gastrointestinal: Soft and benign, Non-distended Musculoskeletal: No clubbing Neuro: Assessment And Plan - Current Problems (Diagnosis) (1) Acute metabolic encephalopathy Current Visit: Yes Status: Acute (2) Metabolic syndrome Current Visit: Yes Status: Acute (3) History of dementia Current Visit: Yes Status: Acute 1. Acute metabolic encephalopathy; continue with antipsychotics; 2. Metabolic syndrome 3. History of dementia
[2025-02-02 07:47] LABS: Absolute Basophils 0.1 K/uL (0-0.5); Absolute Eosinophils 0.6 K/uL (0-0.5); Absolute Neutrophil 4.4 K/uL (1.8-8.0); Basophils % 1.4 % (0-1.3); Eosinophils % 8.9 % (0-4.4); Hematocrit 32.8 % (36.0-45.0); Hemoglobin 10.6 g/dL (12.0-15.0); Lymphocytes % 13.6 % (15.3-44.8); MCH 26.1 pg (27.0-35.0); MCHC 32.2 g/dL (32.0-36.0); MCV 81.1 fL (80-100); MPV 8.6 fL (7.6-11.3); Monocytes % 13.9 % (3.3-12.3); Neutrophils % 62.2 % (41.7-73.7); Nucleated Red Blood Cells % 0.1 % (0-0); Platelets 247 thou/uL (152-406); RBC Red Blood Cell Count 4.05 M/uL (3.86-4.86); Red Cell Distribution Width 18.1 % (12.1-15.2)
[2025-02-02 07:57] LABS: Anion Gap 8.9 mEq/L (5.0-15.0); Potassium 3.9 mEq/L (3.5-5.1)
[2025-02-02 15:47] VITALS: BP 166/67; TEMP 98.6
--- NOTE | 2025-02-11 00:24 | P.DS ---
Discharge Date: 02/02/25 Disposition: TRANSFER TO JAIL Discharge Condition: GOOD Reason for Admission: ESBL infection/cough chest congestion Brief History of Present Illness: 59-year-old female with past medical history of CKD stage II diabetes, retin opathy and history of macular edema, history of blindness, major depressive disorder, vitamin D deficiency, hyperlipidemia, who was recently been admitted to the hospital and was discharged this morning came back to ER with altered mental status. Patient is a poor historian hence most of the history is obtained from the chart review and also talking to the ER physician. Patient is alert and awake and oriented x 2 but has delusions of snakes running around her. Denies any headache. Denies any fall. No fever or chills. No nausea vomiting or diarrhea. Patient was assessed in the ER and is admitted for further management. Hospital Course: Patient has done well during hospital stay. Patient is clinically doing much better. Labs are stable. At this time, patient is stable for discharge with outpatient follow-up with PCP and specialist. Patient will discharge to snf with outpatient follow-up. Vital Signs/Physical Exam: Temp Pulse Resp BP Pulse Ox 98.6 F 110 H 16 166/67 H 97 02/02/25 15:47 02/02/25 15:47 02/02/25 15:47 02/02/25 15:47 02/02/25 15:47 General: Alert, In no apparent distress, Oriented x2 Laboratory Data at Discharge: WBC 7.10 thou/uL (4.3-10.9) 02/02/25 07:29 Hgb 10.6 g/dL (12.0-15.0) L 02/02/25 07:29 Hct 32.8 % (36.0-45.0) L 02/02/25 07:29 Plt Count 247 thou/uL (152-406) 02/02/25 07:29 Sodium 144 mEq/L (136-145) 02/02/25 07:29 Potassium 3.9 mEq/L (3.5-5.1) 02/02/25 07:29 BUN 21 mg/dL (7-18) H 02/02/25 07:29 Creatinine 1.22 mg/dL (0.55-1.02) H 02/02/25 07:29 Glucose 53 mg/dL (74-106) L* 02/02/25 07:29 Phosphorus 3.0 mg/dL (2.5-4.9) 01/31/25 05:44 Magnesium 2.1 mg/dL (1.6-2.4) 01/31/25 05:44 Total Bilirubin 0.4 mg/dL (0.2-1.0) 01/28/25 06:40 AST 27 U/L (15-37) 01/28/25 06:40 ALT 52 U/L (13-56) 01/28/25 06:40 Alkaline Phosphatase 135 U/L (45-117) H 01/28/25 06:40 Lipase 15 U/L (13-75) 01/27/25 15:52 Home Medications: Acetaminophen 325 mg PO Q4HP PRN 01/27/25 Acetaminophen 650 mg PO Q4HP PRN 01/27/25 Aspirin 81 mg PO DAILY 01/27/25 Bimatoprost [Lumigan] 1 drop OP BEDTIME 01/27/25 Brimonidine Tartrate 1 drop OP BID 01/27/25 Brinzolamide [Azopt] 1 drop OP TID 01/27/25 Carboxymethylcellulose Sodium [Artificial Tears] 2 drop OP BID 01/27/25 Clopidogrel Bisulfate [Plavix] 75 mg PO DAILY 01/27/25 Netarsudil Mesylate [Rhopressa] 2.5 ml OP BEDTIME 01/27/25 Paroxetine HCl [Paxil] 60 mg PO BEDTIME 01/27/25 Rosuvastatin [Crestor*] 10 mg PO BEDTIME 01/27/25 Timolol Maleate [Timoptic] 1 drop OP BID 01/27/25 Arformoterol Tartrate [Brovana] 15 mcg NEB BIDRESP vial.neb 02/02/25 Budesonide [Pulmicort*] 0.5 mg NEB BIDRESP amp 02/02/25 Enoxaparin Sodium [Lovenox 40 MG INJ*] 40 mg SQ DAILY syr 02/02/25 Insulin Glargine,Hum.rec.anlog [Semglee] 10 unit SQ BEDTIME ml 02/02/25 Mupirocin Calcium [Bactroban Nasal*] 1 appl ZECHARIAH BID tube 02/02/25 Quetiapine [Seroquel*] 25 mg PO BEDTIME #30 tab 03/17/25 New Medications: Quetiapine [Seroquel*] 25 mg PO BEDTIME #30 tab Physician Discharge Instructions: -DC IV and DC to snf -Follow-up with PCP in 1 to 2 weeks -Complete Merrem for 4 more days -Please call Dr. Blankenship at [phone] if any questions regarding hospital stay -Please call nursing station at [phone] if any nursing or medication questions -Return to the emergency room if symptoms worsen Diet: AHA Activity: Fall precautions Followup: Art Black MD [Primary Care Provider] - Time spent managing pt's care (in minutes): 35
== END 2025-02-02 18:00 | DRG 637 ==
LOC: ER 15:10 → ERHOLD 19:38 → 4TH 20:50
PROVIDERS: ADMIT Family Medicine; ATTEND Hospitalist
PROC: 02HV33Z Insertion of Infusion Device into Superior Vena Cava, Percutaneous Approach (ICD-10-PCS; principal; 2025-01-30)
DX: E11.65 Type 2 diabetes mellitus with hyperglycemia (principal); G93.41 Metabolic encephalopathy; N17.9 Acute kidney failure, unspecified; E87.1 Hypo-osmolality and hyponatremia; Z16.12 Extended spectrum beta lactamase (ESBL) resistance; N18.2 Chronic kidney disease, stage 2 (mild); E11.22 Type 2 diabetes mellitus with diabetic chronic kidney disease; E11.319 Type 2 diabetes mellitus with unspecified diabetic retinopathy without macular edema; E86.0 Dehydration; E78.5 Hyperlipidemia, unspecified; F22 Delusional disorders; H54.7 Unspecified visual loss; J45.20 Mild intermittent asthma, uncomplicated; Z88.5 Allergy status to narcotic agent; Z79.4 Long term (current) use of insulin; Z88.8 Allergy status to other drugs, medicaments and biological substances; Z79.02 Long term (current) use of antithrombotics/antiplatelets; Z91.040 Latex allergy status; Z79.899 Other long term (current) drug therapy
CPT/HCPCS: 36415; 70450; 71045; 80048; 80053; 80307; 81003; 82947; 83605; 83690; 83735; 84100; 84145; 85025; 93005; 94640; 96361; 96374; 99285; J0360; J1650; J1815; J2185; J7030; J7605; J7626

== ENCOUNTER 2025-06-25 20:18 | Emergency (ER) | payer OTHER, MEDICAID ==
[2025-06-25 21:16] LABS: Absolute Lymphocytes (CBC) 1.0 K/uL (0.7-4.9); Hematocrit 40.8 % (36.0-45.0); Hemoglobin 13.3 g/dL (12.0-15.0); MCH 28.2 pg (27.0-35.0); MCHC 32.7 g/dL (32.0-36.0); MCV 86.1 fL (80-100); MPV 9.1 fL (7.6-11.3); Nucleated RBC Absolute Count 0.0 (0-0); Nucleated Red Blood Cells % 0.1 % (0-0); RBC Red Blood Cell Count 4.74 M/uL (3.86-4.86); White Blood Count 5.70 thou/uL (4.3-10.9)
[2025-06-25 21:24] LABS: PT Prothrombin Time 12.3 SECONDS (10-13.0); Protime INR 1.09
--- NOTE | 2025-06-25 21:49 | RAD REPORT ---
EXAM: CT Head Brain Wo Cont HISTORY: history of brain tumor COMPARISON: 01/27/2025 TECHNIQUE: Multiple contiguous axial images were obtained for a CT of the brain without contrast. Sag ittal and coronal reformats were performed. One or more of the following dose reduction techniques were used: Automated exposure control, adjus tment of the mA and kV according to patient size, and iterative reconstruction. Unless otherwise specified, incidental findings do not require dedicated imaging follow-up. FINDINGS: No evidence of hydrocephalus, intracranial hemorrhage, or extra-axial fluid collection. Mild brain atrophy with mild periventricular and deep white matter chronic microvascular ischemic ch anges present. The calvarium is intact. The visualized paranasal sinuses and mastoid air cells are essentially clear . Right globe prothesis in place. IMPRESSION: No evidence of acute intracranial abnormality.
[2025-06-25 22:00] LABS: ALT/SGPT 22 U/L (13-56); Albumin 2.9 g/dL (3.4-5.0); Albumin/Globulin Ratio 0.6 (1.1-1.8); Alkaline Phosphatase 117 U/L (45-117); Anion Gap 10.7 mEq/L (5.0-15.0); BUN Blood Urea Nitrogen 14 mg/dL (7-18); Globulin 4.9 g/dL (2.3-3.5); Glucose Level 290 mg/dL (74-106); NT PRO-BNP 789 pg/mL (<125); Troponin High Sensitivity 13.9 pg/mL (<58.9)
[2025-06-25 22:02] LABS: AST/SGOT 43 U/L (15-37); Bilirubin Indirect, Calculated 0.3 mg/dL (0.2-0.8); Magnesium 1.9 mg/dL (1.6-2.4); Potassium 5.7 mEq/L (3.5-5.1)
[2025-06-25 23:17] LABS: Anion Gap 7.9 mEq/L (5.0-15.0); BUN Blood Urea Nitrogen 14.0 mg/dL (7-18); Glucose Level 261.0 mg/dL (74-106); Potassium 3.9 mEq/L (3.5-5.1)
--- NOTE | 2025-06-25 23:33 | EDPHYS ---
Physician Documentation [facility] Name: Norma Ruiz Age: 59 yrs Sex: Female : 1965 Arrival Date: 06/25/2025 Time: 20:18 Bed 14 Private MD: AMANDA Physician Peter Stanley HPI: 06/25 20:22 This 59 yrs old Female presents to ER via Unassigned with complaints of Sent sp4 for CT to confirm tumor. 23:07 Patient presents with EMS for report of agitation and unusual behavior at the nursing sp4 home whereby patient attempted to escape snf. Patient resident of [facility]. Patient has history of legal blindness, right eye cataract, metabolic encephalopathy, generalized muscle weakness, poor mobility, lack of coordination. Patient's medications include acetaminophen as needed, artificial tears, sorbic acid, aspirin 81 mg daily, atorvastatin 20 mg bedtime, brimonidine, brinzolamide, Brovana, diabetic [place] syrup, docusate daily, Enulose daily, glucagon as needed,. Insulin glargine 20 units subcu every morning, insulin lispro 4 units before meals, Lumigan, Maalox plus, melatonin at bedtime, Milk of Magnesia suspension, ondansetron 4 mg daily, Paxil 20 mg daily, Paxil 40 mg in the evening, Plavix 75 mg daily, Timoptic, Zyprexa 5 mg bedtime.. 23:11 Other medical history apparently includes osteoporosis, pathologic fractures, sp4 hyperlipidemia, essential hypertension, constipation, vitamin D deficiency, allergic rhinitis, artificial eye, major depressive disorder, anxiety disorder, glaucoma, type 1 diabetes, diabetic retinopathy, macular edema, multiple excoriations, multiple falls, hypoactive delirium, NSTEMI, chronic kidney disease, muscular spasms, intermittent asthma, atherosclerotic heart disease, angina pectoris, hallucinations, legal blindness, poor coordination, and metabolic encephalopathy. 23:14 Additional history reported by EMS as the patient was suspected to have brain mass. And sp4 patient was sent here for evaluation of brain mass.. 23:16 In patient's own words patient states that she is here because she is and she sp4 is here for evaluation of adrenal cysts. Historical: - Allergies: 20:34 Aleve; cp4 20:34 CEPHALOSPORINS; cp4 20:34 Coconut; cp4 20:34 Latex; cp4 20:34 metronizadole; cp4 20:34 Morphine; cp4 20:34 Novocain; cp4 20:34 Prednisone; cp4 20:34 Tuberculin PPD; cp4 - Home Meds: 20:34 Aspirin Oral [Active]; atorvastatin 20 mg oral tablet 1 tab daily [Active]; brimonidine cp4 0.2 % ophthalmic (eye) drops 1 drop twice a day [Active]; brinzolamide 1 % ophthalmic (eye) drops, suspension 1 drop three times a day [Active]; Brovana 15 mcg/2 mL inhalation Solution for Nebulization 2 mL 2 times per day [Active]; docusate sodium 100 mg Oral capsule 1 caps 2 times per day [Active]; insulin glargine 100 unit/mL (3 mL) subcutaneous Insulin Pen 20 units every morning [Active]; insulin lispro subcutaneous 4 units before meals [Active]; Lumigan ophthalmic (eye) 1 drop every evening [Active]; melatonin 3 mg Oral Tablet,disintegrating 2 tabs every day at bedtime [Active]; Paxil 60 mg Oral daily [Active]; Plavix 75 mg oral tablet 1 tab daily [Active]; timolol maleate 0.5 % ophthalmic (eye) Drops, Once Daily 1 drop 2 times per day [Active]; Rhopressa 0.02 % ophthalmic (eye) drops 1 drop every evening [Active]; Zyprexa 5 mg Oral tablet 1 tab every day at bedtime [Active]; - PMHx: 20:34 Acute Kidney Failure; diabetes mellitus; Hyperlipidemia; diabetic retinopathy; macular cp4 edema; Major Depressive Disorder; vitamin d defiency; - Immunization history:: Adult Immunizations up to date. - Infectious Disease History:: Denies. - Social history:: Smoking status: Patient denies any tobacco usage or history of. - Family history:: not pertinent. ROS: 23:13 Constitutional: Negative for fever, chills, and weight loss, positive for agitation. sp4 23:13 All other systems are negative, Exam: 23:14 Constitutional: Patient is physically debilitated female with signs of prolonged sp4 immobility. Bilateral lower extremity edema, also multiple excoriations to face upper extremities and lower extremities. Patient has signs of moderate dementia. Patient also has disorganized speech on exam. And also with poor derailment. Head/Face: Normocephalic, atraumatic. Eyes: Apparent artificial right eye, left eye pupil is reactive. Patient has very poor vision. She is able to differentiate shapes but not able to discern faces ENT: Nares patent. No nasal discharge, no septal abnormalities noted. Tympanic membranes are normal and external auditory canals are clear. Oropharynx with no redness, swelling, or masses, exudates, or evidence of obstruction, uvula midline. Mucous membranes moist. Neck: Trachea midline, no thyromegaly or masses palpated, and no cervical lymphadenopathy. Supple, full range of motion without nuchal rigidity, or vertebral point tenderness. Chest/axilla: Normal chest wall appearance and motion. Nontender with no deformity. No lesions are appreciated. Cardiovascular: Regular rate and rhythm with a normal S1 and S2. No gallops, murmurs, or rubs. No pulse deficits. Respiratory: Lungs have equal breath sounds bilaterally, clear to auscultation and percussion. No rales, rhonchi or wheezes noted. No increased work of breathing, no retractions or nasal flaring. Abdomen/GI: Soft, with normal bowel sounds. No distension or tympany. No guarding or rebound. No evidence of tenderness throughout. Back: No spinal tenderness. No costovertebral tenderness. Female : Normal external genitalia. Patient is incontinent of bladder. Skin: Warm, dry with normal turgor. Normal color with no rashes, no lesions, and no evidence of cellulitis. MS/ Extremity: Pulses equal, no cyanosis. Neurovascular intact. Full, normal range of motion. Neuro: Awake and alert, GCS 15, oriented to person, oriented to others. Cranial nerves II-XII grossly intact. Motor strength 5/5 in all extremities. Sensory grossly intact. Psych: Awake, alert, with orientation to person, and oriented to others. Patient has disorganized thought process and reports that she is . 23:16 ECG was reviewed by the Attending Physician. EKG at 2043 normal sinus rhythm rate sp4 93, otherwise unremarkable EKG. Vital Signs: 20:31 BP 161 / 75; Pulse 96; Resp 18; Temp 98.1; Pulse Ox 100% ; Weight 99.79 kg; Height 5 cp4 ft. 5 in. ; Pain 0/10; 21:00 BP 144 / 85; Pulse 89; Resp 18; Pulse Ox 99% ; cp4 22:00 BP 164 / 71; Pulse 90; Resp 18; Pulse Ox 100% ; cp4 23:00 BP 153 / 74; Pulse 83; Resp 18; Pulse Ox 99% ; cp4 20:31 Body Mass Index 36.61 (99.79 kg, 165.1 cm) cp4 20:31 Pain Scale: Adult cp4 MDM: 20:23 Medical Screening Exam initiated sp4 23:05 ED course: HISTORY: history of brain tumor COMPARISON: 01/27/2025 TECHNIQUE: Multiple sp4 contiguous axial images were obtained for a CT of the brain without contrast. Sagittal and coronal reformats were performed. One or more of the following dose reduction techniques were used: Automated exposure control, adjustment of the mA and kV according to patient size, and iterative reconstruction. Unless otherwise specified, incidental findings do not require dedicated imaging follow-up. FINDINGS: No evidence of hydrocephalus, intracranial hemorrhage, or extra-axial fluid collection. Mild brain atrophy with mild periventricular and deep white matter chronic microvascular ischemic changes present. The calvarium is intact. The visualized paranasal sinuses and mastoid air cells are essentially clear. Right globe prothesis in place. IMPRESSION: No evidence of acute intracranial abnormality. P. 23:23 Differential Diagnosis: intracranial bleed, pneumonia, seizure, sepsis, TIA, UTI, sp4 volume depletion. Data reviewed: vital signs, nurses notes, EMS record, old medical records, lab test result(s), EKG, radiologic studies, CT scan. 23:31 Consideration of Admission/Observation Escalation of care including sp4 admission/observation considered. ED course: Patient has blood sugar elevation with known history of diabetes. Otherwise unremarkable workup. CT head is negative. No signs of brain mass. Patient stable for discharge back to the snf.. 06/25 20:27 Order name: Basic Metabolic Panel; Complete Time: 22:41 sp4 06/25 20:27 Order name: CBC with Diff; Complete Time: 22:41 sp4 06/25 20:27 Order name: LFT's; Complete Time: 22:41 sp4 06/25 20:27 Order name: Magnesium; Complete Time: 22:41 sp4 06/25 20:27 Order name: NT PRO-BNP; Complete Time: 22:41 sp4 06/25 20:27 Order name: PT-INR; Complete Time: 22:41 sp4 06/25 20:27 Order name: Troponin HS; Complete Time: 22:41 sp4 06/25 20:27 Order name: AMMONIA; Complete Time: 22:41 sp4 06/25 22:42 Order name: BMP; Complete Time: 23:30 sp4 06/25 20:27 Order name: CT Head Brain wo Cont; Complete Time: 22:41 sp4 06/25 20:27 Order name: EKG; Complete Time: 20:27 sp4 06/25 20:27 Order name: Cardiac monitoring; Complete Time: 20:47 sp4 06/25 20:27 Order name: EKG - Nurse/Tech; Complete Time: 20:47 sp4 06/25 20:27 Order name: IV Saline Lock; Complete Time: 20:59 sp4 06/25 20:27 Order name: Labs collected and sent; Complete Time: 20:59 sp4 06/25 20:27 Order name: O2 Per Protocol; Complete Time: 20:47 sp4 06/25 20:27 Order name: O2 Sat Monitoring; Complete Time: 20:47 sp4 EC:44 Rate is 93 beats/min. Rhythm is regular, Normal Sinus Rhythm. QRS [place] is Normal. [place] sp4 interval is normal. QRS interval is normal. QT interval is normal. No Q waves. T waves are Normal. No ST changes noted. Clinical impression: No evidence of ischemia. Interpreted by me. Reviewed by me. Administered Medications: No medications were administered Disposition Summary: 06/25/25 23:32 Discharge Ordered Notes: No evidence of brain mass on CT today Location: Home sp4 Problem: new sp4 Symptoms: have improved sp4 Condition: Stable sp4 Diagnosis - Unspecified dementia with behavioral disturbance sp4 - Early onset dementia with agitated behavior sp4 Followup: sp4 - With: Private Physician - When: 7 - 10 days - Reason: Recheck today's complaints Discharge Instructions: - Discharge Summary Sheet sp4 - Dementia sp4 Forms: - Patient Portal Instructions sp4 Signatures: Dispatcher [employer] Peter Bernstein MD MD sp4 Mita Alvares 4
--- NOTE | 2025-06-25 23:33 | ER ---
Nurse's Notes [facility] Name: Norma Ruiz Age: 59 yrs Sex: Female : 1965 Arrival Date: 06/25/2025 Time: 20:18 Bed 14 Private MD: Diagnosis: Unspecified dementia with behavioral disturbance;Early onset dementia with agitated behavior Presentation: 06/25 20:31 Chief complaint: EMS states: patient was sent to confirm brain tumor with CT. Patient cp4 has recently been trying to escape [facility] and they need to move her placement and need CT to confirm. Coronavirus screen: Vaccine status: Patient reports receiving the 2nd dose of the covid vaccine. Client denies travel out of the [place] in the last 14 days. At this time, the client does not indicate any symptoms associated with coronavirus-19. Ebola Screen: Patient negative for fever greater than or equal to 101.5 degrees Fahrenheit, and additional compatible Ebola Virus Disease symptoms Patient denies exposure to infectious person. Patient denies travel to an Ebola-affected area in the 21 days before illness onset. No symptoms or risks identified at this time. Initial Sepsis Screen: Does the patient meet any 2 criteria? HR > 90 bpm. No. Patient's initial sepsis screen is negative. Does the patient have a suspected source of infection? No. Patient's initial sepsis screen is negative. Risk Assessment: Do you want to hurt yourself or someone else? Patient reports no desire to harm self or others. Onset of symptoms is unknown. 20:31 Method Of Arrival: EMS: [place] [id number] 20:31 Acuity: LEWIS 3 cp4 Triage Assessment: 20:34 General: Appears in no apparent distress. comfortable, Behavior is calm, cooperative, cp4 appropriate for age. Pain: Denies pain. 20:34 EENT: No signs and/or symptoms were reported regarding the EENT system. Neuro: Level of cp4 Consciousness is awake, alert, obeys commands, Oriented to person, place, time, situation. Cardiovascular: Patient's skin is warm and dry. Rhythm is sinus rhythm. Respiratory: Airway is patent Respiratory effort is even, unlabored. GI: No signs and/or symptoms were reported involving the gastrointestinal system. : No signs and/or symptoms were reported regarding the genitourinary system. Derm: No signs and/or symptoms reported regarding the dermatologic system. Musculoskeletal: No signs and/or symptoms reported regarding the musculoskeletal system. Historical: - Allergies: 20:34 Aleve; cp4 20:34 CEPHALOSPORINS; cp4 20:34 Coconut; cp4 20:34 Latex; cp4 20:34 metronizadole; cp4 20:34 Morphine; cp4 20:34 Novocain; cp4 20:34 Prednisone; cp4 20:34 Tuberculin PPD; cp4 - Home Meds: 20:34 Aspirin Oral [Active]; atorvastatin 20 mg oral tablet 1 tab daily [Active]; brimonidine cp4 0.2 % ophthalmic (eye) drops 1 drop twice a day [Active]; brinzolamide 1 % ophthalmic (eye) drops, suspension 1 drop three times a day [Active]; Brovana 15 mcg/2 mL inhalation Solution for Nebulization 2 mL 2 times per day [Active]; docusate sodium 100 mg Oral capsule 1 caps 2 times per day [Active]; insulin glargine 100 unit/mL (3 mL) subcutaneous Insulin Pen 20 units every morning [Active]; insulin lispro subcutaneous 4 units before meals [Active]; Lumigan ophthalmic (eye) 1 drop every evening [Active]; melatonin 3 mg Oral Tablet,disintegrating 2 tabs every day at bedtime [Active]; Paxil 60 mg Oral daily [Active]; Plavix 75 mg oral tablet 1 tab daily [Active]; timolol maleate 0.5 % ophthalmic (eye) Drops, Once Daily 1 drop 2 times per day [Active]; Rhopressa 0.02 % ophthalmic (eye) drops 1 drop every evening [Active]; Zyprexa 5 mg Oral tablet 1 tab every day at bedtime [Active]; - PMHx: 20:34 Acute Kidney Failure; diabetes mellitus; Hyperlipidemia; diabetic retinopathy; macular cp4 edema; Major Depressive Disorder; vitamin d defiency; - Immunization history:: Adult Immunizations up to date. - Infectious Disease History:: Denies. - Social history:: Smoking status: Patient denies any tobacco usage or history of. - Family history:: not pertinent. Screenin:46 [facility] ED Fall Risk Assessment (Adult) History of falling in the last 3 months, cp4 including since admission No falls in past 3 months (0 pts) Confusion or Disorientation Yes (5 pts) Intoxicated or Sedated No (0 pts) Impaired Gait No (0 pts) Mobility Assist Device Used No (0 pt) Altered Elimination No (0 pt) Score/Fall Risk Level 3 or more points = High Risk Oriented to surroundings, Maintained a safe environment, Assessed \T\ reinforced patient's understanding of fall precautions, Hourly rounding (assess needs \T\ fall precautionary measures) done, Implemented a Fall Risk Plan of Care. Abuse screen: Denies threats or abuse. Denies injuries from another. Nutritional screening: No deficits noted. Tuberculosis screening: No symptoms or risk factors identified. Never had TB. Assessment: 20:46 Reassessment: No changes from previously documented assessment. cp4 23:35 Reassessment: Spoke with Jay regarding discharge for patient. States she will arrange [facility] transportation back. Vital Signs: 20:31 BP 161 / 75; Pulse 96; Resp 18; Temp 98.1; Pulse Ox 100% ; Weight 99.79 kg; Height 5 cp4 ft. 5 in. ; Pain 0/10; 21:00 BP 144 / 85; Pulse 89; Resp 18; Pulse Ox 99% ; cp4 22:00 BP 164 / 71; Pulse 90; Resp 18; Pulse Ox 100% ; cp4 23:00 BP 153 / 74; Pulse 83; Resp 18; Pulse Ox 99% ; cp4 20:31 Body Mass Index 36.61 (99.79 kg, 165.1 cm) cp4 20:31 Pain Scale: Adult 4 ED Course: 20:20 Patient arrived in ED. cp4 20:22 Peter Stanley MD is Attending Physician. sp4 20:31 Mita Alvares is Primary Nurse. cp4 20:34 Triage completed. cp4 20:34 Arm band placed on right wrist. Patient placed in an exam room, on a stretcher. cp4 20:46 Bed in low position. Call light in reach. Side rails up X2. cp4 20:46 No provider procedures requiring assistance completed. cp4 20:58 EKG done, by photo equipment technician. ts3 20:59 Inserted saline lock: 22 gauge in right hand, using aseptic technique. Blood collected. ts3 Flushed with 10 mL NS. 20:59 by laboratory animal facility supervisor, sent to lab. ts3 21:12 CT Head Brain wo Cont In Process Unspecified. EDMS 06/26 00:13 Provided Education on: dementia. cp4 00:13 intact, bleeding controlled, No redness/swelling at site. Pressure dressing applied. cp4 Administered Medications: No medications were administered Medication: 06/25 20:46 VIS not applicable for this client. cp4 Outcome: 23:32 Discharge ordered by . sp4 06/26 00:13 Discharged to [facility]. Report called to Jay [email or web address] Condition: stable Discharge instructions given to EMS, Instructed on discharge instructions, follow up and referral plans. Demonstrated understanding of instructions, follow-up care, 00:15 Patient left the ED. cp4 Signatures: Dispatcher [employer] Peter Bernstein MD MD sp4 Mita Alvares cp4 Ambar Abad 3
[2025-06-26 00:24] VITALS: TEMP 98.1
[2025-06-26 00:29] VITALS: BP 153/74; O2SAT 99
== END 2025-06-26 00:15 | disposition home or self-care (01) ==
LOC: ER 20:18
DX: R45.1 Restlessness and agitation (principal); F03.911 Unspecified dementia, unspecified severity, with agitation; Z79.82 Long term (current) use of aspirin
CPT/HCPCS: 36415; 70450; 80048; 80076; 82140; 83735; 83880; 84484; 85025; 85610; 93005; 99284